=== PATIENT | male | born 1960 | race Caucasian/White ===

== ENCOUNTER 2018-03-05 18:26 | Emergency (ER) | payer BC, OTHER ==
[~2018-03-05] VITALS: Ht 182.9 cm; Wt 100.0 kg
[2018-03-05 18:39] VITALS: TEMP 37.4; Ht 182.9 cm; Wt 100.0 kg
[2018-03-05] MEDS ORDERED: LIDOCAINE/EPINEPHRINE 1% 20 ML VIAL INFIL STA (18:51)
[2018-03-05] MEDS ORDERED: OMEG10007 PO (19:04)
[2018-03-05] MEDS ORDERED: HYZ/10015 PO (19:04)
[2018-03-05] MEDS ORDERED: ASPI81TA28 PO (19:04)
--- NOTE | 2018-03-05 19:30 | DIAGNOSTIC IMAGING REPORT ---
L KNEE 3 VIEWS CLINICAL HISTORY: Left knee pain COMPARISON: None. DISCUSSION: No acute fractures are visualized. There is a vertical lucency involving the far medial aspect of the medial tibial plateau. As there is no joint effusion, and no history of acute trauma, this finding is likely chronic. There are osteoarthritic changes with medial joint compartment narrowing. IMPRESSION: 1. Osteoarthritic changes with medial joint compartment narrowing. Electronically signed by: Demian Dougherty M.D. 03/05/2018 7:28 PM Dictated Date/Time: 03/05/2018 7:26 PM
--- NOTE | 2018-03-05 20:20 | EMERGENCY ROOM VISIT NOTE ---
ED Visit Note First contact with patient: 18:42 Chief Complaint: "Bleeding from R leg" History of Present Illness: This patient is a 57-year-old male who presents to the Emergency Department via private vehicle accompanied by son for evaluation of their right posterior knee laceration. Patient sustained the laceration while ice skating at the local ice rink when he accidentally tripped over a small child and believes that there ice skates may have cut his leg. They report a minimal amount of bleeding initially. They deny any numbness or tingling into the distal extremity. . Patient rates his current discomfort as a 1/10. Patient's Tetanus status is believed to be currently up-to-date. Medications: As noted below Allergies: Lisinopril PMH: No pertinent SHx: Patient lives locally with family. ROS: All pertinent positive and negative review of systems are appropriately documented in the History of Present Illness. Physical Exam: VITAL SIGNS - Vital signs and nursing notes were reviewed. Stable. GENERAL -57-year-old male appearing his stated age who is in no acute distress. Communicates well with provider and answers questions appropriately. SKIN - There is a 4 cm long laceration noted posterior aspect of his right leg on the posterior lateral aspect of the knee. The edges gape apart with traction. No foreign bodies appreciated. Upon further examination there are no deep structures including vessel, tendon, or bony structures appreciated. There is no active bleeding noted. MUSCULOSKELETAL -full range of motion of the right knee assessed. He is neurovascularly intact distal to this laceration. NEUROLOGIC - Spinothalamic tract was found to be intact with ability to discriminate sharp versus dull sensation. No sensory defects of the dorsal column were appreciated utilizing light touch for evaluation. VASCULAR - Capillary refill was brisk. IMAGING: L KNEE 3 VIEWS CLINICAL HISTORY: Left knee pain COMPARISON: None. DISCUSSION: No acute fractures are visualized. There is a vertical lucency involving the far medial aspect of the medial tibial plateau. As there is no joint effusion, and no history of acute trauma, this finding is likely chronic. There are osteoarthritic changes with medial joint compartment narrowing. IMPRESSION: 1. Osteoarthritic changes with medial joint compartment narrowing. Electronically signed by: Demian Dougherty M.D. 03/05/2018 7:28 PM Dictated Date/Time: 03/05/2018 7:26 PM ED Course: Patient was seen and evaluated by myself. Risks and benefits of performing primary wound closure versus no repair were discussed with the patient who verbalizes understanding. X-ray was obtained to rule out bony injury. This is negative. Verbal consent was obtained prior to performing the procedure. 5 cc of 1% buffered lidocaine with epinephrine was used to anesthetize the posterior leg laceration. The wound was cleansed and prepped in the typical sterile fashion utilizing normal saline and Betadine. The wound was sterilely draped. Once proper anesthetization was established, the wound was further examined and demonstrated no deep involvement. The wound was copiously irrigated with normal saline and Betadine. The wound was closed using 3 simple 4-0 Vicryl sutures, and eight 4-0 nylon sutures with the wound edges being well approximated. Patient tolerated the procedure well. No complications were met. The wound was cleansed and dressed with a Bacitracin dressing. Patient received their Adacel vaccination. Patient educated on worrisome symptoms for return visit to the Emergency Department. Patient discharged to home in good condition. He is to follow up with PCP for chronic knee finding on Xray. In the evaluation and treatment of this patient, the following differential diagnoses were considered: Patellar Fracture, Tibial Plateau Fracture, Distal Femur Fracture, ACL Injury, PCL Injury, Collateral Ligament Injury, Pes Anserine Bursitis, Maisonneuve Fracture. Current/Historical Medications Scheduled Aspirin (Aspirin Ec), 81 MG PO DAILY Fish Oil ([place]-3), 1 CAP PO DAILY Hctz/Losartan (Hyzaar 25MG/100MG), Unknown Dose PO DAILY Allergies Coded Allergies: Lisinopril (Unverified Allergy, Unknown, ., 03/05/18) Vital Signs Date Time Temp Pulse Resp B/P (MAP) Pulse Ox O2 Delivery O2 Flow Rate FiO2 03/05/18 18:39 37.4 72 16 134/92 98 Departure Information Impression Primary Impression: Laceration Dispostion Home / Self-Care Condition GOOD Referrals Julian Carlos D.O. (PCP) Hossein Navarrete M.D. Patient Instructions My [facility] Additional Instructions Discharge Instructions: You have received 8 sutures on your leg (and 3 additional dissolvable). These sutures are NOT dissolvable and WILL need to be removed by a health care provider in 12-14 days. You can return to the Emergency Department or contact your Primary Care Provider to have the sutures removed. Proper wound care is essential for adequate wound healing and infection prevention. You can shower and clean the wound with soap and water. Do not scour over the wound, pat dry with a towel. Do not submerse the wound (i.e. bathe or dish wash) until the sutures have been removed. You can use an antibiotic ointment with a dressing over the wound for the next 3-4 days. After this time you may leave the wound dry and open to the air. If crust develops over the wound you can use a Q-tip to apply a 1:1 peroxide:water solution to clean the wound. Look for signs of infection of the wound including: increased pain, swelling, foul discharge, streaking, or increased temperature. If any of these are noticed you should return to the Emergency Department for further assessment and treatment. As with any laceration you may have received nerve damage to the surrounding tissues. This damage may or may not be permanent. You should keep the area covered with sunscreen for the first 6 months to 1 year when at risk for exposure to help minimize scarring. You can also use scar reducing creams or Vitamin E oil to help minimize scarring. For pain control, you can use the following [id number] medicines (if >12 yo): - Regular strength (325mg/tab) Tylenol (acetaminophen) 2 tabs every 4-6 hours as needed. Do not exceed 12 tablets in a 24 hour period. Avoid taking more than 3 grams (3000 mg) of Tylenol per day. This includes any other sources of acetaminophen you may take on a regular basis. - Regular strength (200 mg/tab) Advil (ibuprofen) 1-2 tabs every 4-6 hours as needed. Do not exceed a dose of 3200 mg per day. Return to the emergency department if your symptoms worsen despite treatment course outlined above. It would be reasonable to call Dr. Navarrete, your orthopedic surgeon in regard to the likely chronic finding of the knee if you have persistent symptoms. L KNEE 3 VIEWS CLINICAL HISTORY: Left knee pain COMPARISON: None. DISCUSSION: No acute fractures are visualized. There is a vertical lucency involving the far medial aspect of the medial tibial plateau. As there is no joint effusion, and no history of acute trauma, this finding is likely chronic. There are osteoarthritic changes with medial joint compartment narrowing.
[2018-03-05 20:34] VITALS: BP 148/100; PULSE 64; O2SAT 99
== END 2018-03-05 20:36 | disposition home or self-care (01) ==
LOC: C.EDB 18:26 → C.EDD 20:36
DX: S81.011A Laceration without foreign body, right knee, initial encounter (principal); W03.XXXA Other fall on same level due to collision with another person, initial encounter; Y93.21 Activity, ice skating; Y92.330 Ice skating rink (indoor) (outdoor) as the place of occurrence of the external cause; Z88.8 Allergy status to other drugs, medicaments and biological substances

== ENCOUNTER 2023-03-09 07:36 | Inpatient (IN) ==
[2023-03-09] MEDS ORDERED: cefTRIAXone SODIUM 2,000 MG/70 ML BAG IV STA (07:43)
--- NOTE | 2023-03-09 07:47 | Emergency Department Note ---
Impression & Plan Pneumonia, Hypoxia, Hypomagnesemia ED Provider Note NAME: JACQUELINE MANZO AGE: 62 SEX: M : 1960 ARRIVES VIA: Ambulance INFORMANT: Patient, EMS ED PROVIDER(S): Julian Whitfield DO CHIEF COMPLAINT: Difficulty breathing HPI: The patient is a 62-year-old male who presented to the emergency department for an evaluation of difficulty breathing. The patient states he had symptoms over the course of the last few weeks but he did notice a significant increase in his symptoms over the last few days. He has noticed a cough as well as fever. He denies having any dysuria or frequency. He denies having any swelling in his legs. The patient has not been seen by his primary care physician over the last few days. He denies having any hemoptysis. The patient states he has no chest pain. The patient called 911 this morning because he became very short of breath with very little exertion. The patient was treated with supplemental oxygen prior to arrival. He was noted to have oxygen saturation in the 70s. ROS: See above HPI for pertinent positives & negatives. A total of 10 systems reviewed and were otherwise negative. PAST MEDICAL HISTORY: See Below PAST SURGICAL HISTORY: See Below FAMILY HISTORY: See Below SOCIAL HISTORY: See Below HOME MEDICATIONS: See Below ALLERGIES: See Below VITALS: See Below PHYSICAL EXAMINATION: GENERAL: The patient is awake and alert. He appears to be uncomfortable. EYES: The conjunctivae are clear. The pupils are round and reactive. EARS, NOSE, MOUTH AND THROAT: The nose is without any evidence of any deformity. NECK: The neck is nontender and supple. RESPIRATORY: Diminished breath sounds were noted with rales at both bases. Absent breath sounds were noted in the right middle lobe. There is significant tachypnea as well as conversational dyspnea. CARDIOVASCULAR: Tachycardic and regular heart sounds were noted to auscultation. There is no definite murmur. GASTROINTESTINAL: The abdomen is soft. Abdomen is nontender. MUSCULOSKELETAL/EXTREMITIES: There is no evidence of gross deformity full range of motion is noted in the hips and shoulders. SKIN: There is no obvious evidence of any rash. There are no petechiae, pallor or cyanosis noted. NEUROLOGIC: Patient is awake alert and oriented x3 MEDICAL DECISION MAKING: The patient is a 62-year-old male who presented to the emergency department for an evaluation of shortness of breath and cough. The patient was found to have a fever. Physical exam appears to be consistent with pneumonia. The patient had hypoxia which was treated with high flow oxygen. The patient was feeling much better on subsequent reevaluation. I discussed the patient's laboratory and radiographic studies with him. Given his findings I discussed his condition with the on-call [facility]. They have agreed to evaluate the patient in the emergency department for further management and disposition. The patient was treated with IV antibiotics and IV fluids. Triage Nursing notes reviewed. Prior medical records reviewed Vital Signs: reviewed and remarkable for tachycardia and fever. Differential diagnosis: Reactive airway disease, pneumonia, pneumothorax, COPD, CHF, infections, cardiac ischemia, pulmonary embolism, musculoskeletal, gastrointestinal, as well as other pathologies. ER treatment provided: See below Diagnostics interpreted by me: ECG: EKG was obtained in the emergency department. My interpretation is sinus tachycardia at 118 bpm. There is no ectopy. Nonspecific T wave abnormalities were noted in the inferior leads. No previous tracing was available. Cardiac Monitoring: An order was placed for continuous cardiac monitoring. The monitor shows a rate of 100 bpm with sinus tachycardia. Laboratory studies: As stated above and show below. Imaging studies: See below. Radiographic imaging was reviewed by myself Consultation(s): I discussed this case with Elsa who is covering for the [facility] group. They will evaluate the patient in the emergency department. ED COURSE: Procedures: none Critical Care: I have personally spent greater than 35 minutes of critical care time in the direct management of this patient. This includes bedside care, interpretation of diagnostic studies, and testing, discussion with consultants, patient, and family members, and other required patient management activities. This 35 minutes is in excess of all separately billable procedures. Past Med/Surg History Medical History (Updated 03/09/23 @ 10:29 by Lorena Jasmine PA-C) Hypertension Sensorineural hearing loss of both ears Tinnitus, bilateral Surgical History (Updated 03/09/23 @ 10:26 by Lorena Jasmine PA-C) No significant past surgical history Family History (Updated 03/09/23 @ 10:26 by Lorena Jasmine PA-C) Father COPD (chronic obstructive pulmonary disease) Mother Dementia Social History Smoking Status: Never smoker Preferred Language: Malawian Feels Safe at Home: Yes Allergies Allergies Allergy/AdvReac Type Severity Reaction Status Date / Time lisinopril AdvReac Mild Cough Unverified 03/09/23 09:26 Home Meds Home Medications Medication Instructions Recorded Confirmed albuterol sulfate 90 mcg/actuation 1 puff inhalation Q4H PRN 03/09/23 03/09/23 aerosol inhaler Shortness Of Breath losartan 100 1 tab PO DAILY 03/09/23 03/09/23 mg-hydrochlorothiazide 12.5 mg tablet Results & Data (ED) Vital Signs Vital Signs - 24 hr 03/09/23 07:49 03/09/23 07:50 03/09/23 08:08 Temperature 38.4 C H Temperature Source Oral Pulse Rate 117 H Pulse Rate [Right Finger] 113 H Pulse Rhythm Regular Pulse Rhythm [Right Finger] Pulse Strength Normal Respiratory Rate 22 20 Respiratory Effort / Characteristics Spontaneous Non-Labored Spontaneous Respiratory Depth Normal Blood Pressure 156/91 H Blood Pressure [Left Arm] Blood Pressure Mean 112 Blood Pressure Mean [Left Arm] Blood Pressure Position Sitting Pulse Oximetry 78 L 93 Oxygen Delivery Method Room Air High Flow Nasal Cannula High Flow Nasal Cannula Oxygen Flow Rate 30 Fraction of Inspired Oxygen 100 Sepsis Recent Fever Within 48 Hours Yes Sepsis New/Unexplained Change in Mental Status No Sepsis Action Taken by Nursing Physician Notified 03/09/23 08:09 03/09/23 08:10 03/09/23 08:22 Temperature Temperature Source Pulse Rate Pulse Rate [Right Finger] 109 H 111 H Pulse Rhythm Pulse Rhythm [Right Finger] Regular Regular Pulse Strength Respiratory Rate 22 20 Respiratory Effort / Characteristics Respiratory Depth Blood Pressure Blood Pressure [Left Arm] 156/91 H Blood Pressure Mean Blood Pressure Mean [Left Arm] 112 Blood Pressure Position Pulse Oximetry 95 95 95 Oxygen Delivery Method High Flow Nasal Cannula High Flow Nasal Cannula High Flow Nasal Cannula Oxygen Flow Rate Fraction of Inspired Oxygen Sepsis Recent Fever Within 48 Hours Sepsis New/Unexplained Change in Mental Status Sepsis Action Taken by Nursing 03/09/23 08:55 03/09/23 09:19 03/09/23 09:58 Temperature Temperature Source Pulse Rate Pulse Rate [Right Finger] 100 H 97 H 100 H Pulse Rhythm Pulse Rhythm [Right Finger] Pulse Strength Respiratory Rate 16 17 20 Respiratory Effort / Characteristics Non-Labored Spontaneous Respiratory Depth Blood Pressure Blood Pressure [Left Arm] 156/91 H 110/66 Blood Pressure Mean Blood Pressure Mean [Left Arm] 112 80 Blood Pressure Position Pulse Oximetry 94 95 93 Oxygen Delivery Method High Flow Nasal Cannula High Flow Nasal Cannula High Flow Nasal Cannula Oxygen Flow Rate 30 25 Fraction of Inspired Oxygen 85 Sepsis Recent Fever Within 48 Hours Sepsis New/Unexplained Change in Mental Status Sepsis Action Taken by Custodial Medications Current Medication List: was personally reviewed by me Laboratory Data Attestation: I reviewed the patient's lab results. 03/09/23 07:38 03/09/23 07:38 Lab Results 03/09/23 03/09/23 03/09/23 Range/Units 07:38 07:38 07:38 WBC 19.47 H (4.8-10.8) K/ul RBC 3.97 L (4.70-6.10) M/uL Hgb 12.5 L (14.0-18.0) g/dl Hct 36.8 L (42.0-52.0) % MCV 92.7 (80.0-100.0) fL MCH 31.5 (25.0-34.0) pg MCHC 34.0 (32.0-36.0) g/dL RDW Std Deviation 46.3 (36.4-46.3) fL RDW Coeff of Rajesh 13.4 (11.5-14.5) % Plt Count 341 (130-400) K/uL MPV 10.0 (9.4-12.4) fL Immature Gran % (Auto) 0.8 % Neut % (Auto) 93.5 % Lymph % (Auto) 2.9 % Day % (Auto) 2.1 % Eos % (Auto) 0.3 % Baso % (Auto) 0.4 % Neut # (Auto) 18.21 H (1.40-6.50) K/uL Lymph # (Auto) 0.56 L (1.2-3.4) K/uL Day # (Auto) 0.41 (0.11-0.59) K/uL Eos # (Auto) 0.06 (0-0.50) K/uL Baso # (Auto) 0.07 (0-0.2) K/uL Immature Gran # (Auto) 0.16 (0.01-0.20) K/uL PT 11.6 (9.0-12.0) Seconds INR 1.1 (0.9-1.1) APTT 23.9 (21.0-31.0) Seconds PTT Ratio 0.9 VBG pH (7.36-7.41) VBG pCO2 (38-50) mmHg VBG pO2 mmHg VBG HCO3 mmol/L VBG O2 Saturation % VBG Base Excess mEq/L Sodium 137 (136-145) mmol/L Potassium 4.0 (3.5-5.1) mmol/L Chloride 107 (98-107) mmol/L Carbon Dioxide 22 (21-32) mmol/L Anion Gap 8 (3-11) BUN 24 H (6-23) mg/dl Creatinine 1.35 (0.6-1.4) mg/dl Est Cr Clr Drug Dosing 69.8 ml/min Est GFR ( Amer) 65.2 ml/min Est GFR (Non-Af Amer) 56.3 ml/min BUN/Creatinine Ratio 17.8 (10-20) Glucose 124 H (70-99(Fasting)) mg/dl Lactate (0.4-2.0) mmol/L Calcium 9.3 (8.6-10.3) mg/dl Magnesium 1.5 L (1.7-2.4) mg/dl Total Bilirubin 1.1 H (0.2-1.0) mg/dl Direct Bilirubin 0.2 (0-0.2) mg/dl AST 18 (13-39) U/L ALT 13 (7-52) U/L Alkaline Phosphatase 56 (34-104) U/L Troponin I High Sens 16.5 (0-20) pg/ml B-Natriuretic Peptide (0-100) pg/ml Total Protein 7.4 (6.0-8.3) gm/dl Albumin 3.3 L (3.4-5.0) gm/dl Procalcitonin (0-0.5) ng/ml SARS-CoV-2 (PCR) (Negative) Influenza Type A (PCR) (Neg) Influenza Type B (PCR) (Neg) RSV (RT-PCR) (Neg) 03/09/23 03/09/23 03/09/23 Range/Units 07:38 07:38 07:38 WBC (4.8-10.8) K/ul RBC (4.70-6.10) M/uL Hgb (14.0-18.0) g/dl Hct (42.0-52.0) % MCV (80.0-100.0) fL MCH (25.0-34.0) pg MCHC (32.0-36.0) g/dL RDW Std Deviation (36.4-46.3) fL RDW Coeff of Rajesh (11.5-14.5) % Plt Count (130-400) K/uL MPV (9.4-12.4) fL Immature Gran % (Auto) % Neut % (Auto) % Lymph % (Auto) % Day % (Auto) % Eos % (Auto) % Baso % (Auto) % Neut # (Auto) (1.40-6.50) K/uL Lymph # (Auto) (1.2-3.4) K/uL Day # (Auto) (0.11-0.59) K/uL Eos # (Auto) (0-0.50) K/uL Baso # (Auto) (0-0.2) K/uL Immature Gran # (Auto) (0.01-0.20) K/uL PT (9.0-12.0) Seconds INR (0.9-1.1) APTT (21.0-31.0) Seconds PTT Ratio VBG pH 7.46 H (7.36-7.41) VBG pCO2 31 L (38-50) mmHg VBG pO2 57 mmHg VBG HCO3 22 mmol/L VBG O2 Saturation 89.5 % VBG Base Excess -0.9 mEq/L Sodium (136-145) mmol/L Potassium (3.5-5.1) mmol/L Chloride (98-107) mmol/L Carbon Dioxide (21-32) mmol/L Anion Gap (3-11) BUN (6-23) mg/dl Creatinine (0.6-1.4) mg/dl Est Cr Clr Drug Dosing ml/min Est GFR ( Amer) ml/min Est GFR (Non-Af Amer) ml/min BUN/Creatinine Ratio (10-20) Glucose (70-99(Fasting)) mg/dl Lactate 1.5 (0.4-2.0) mmol/L Calcium (8.6-10.3) mg/dl Magnesium (1.7-2.4) mg/dl Total Bilirubin (0.2-1.0) mg/dl Direct Bilirubin (0-0.2) mg/dl AST (13-39) U/L ALT (7-52) U/L Alkaline Phosphatase (34-104) U/L Troponin I High Sens (0-20) pg/ml B-Natriuretic Peptide (0-100) pg/ml Total Protein (6.0-8.3) gm/dl Albumin (3.4-5.0) gm/dl Procalcitonin 2.91 H (0-0.5) ng/ml SARS-CoV-2 (PCR) (Negative) Influenza Type A (PCR) (Neg) Influenza Type B (PCR) (Neg) RSV (RT-PCR) (Neg) 03/09/23 03/09/23 Range/Units 07:38 Unknown WBC (4.8-10.8) K/ul RBC (4.70-6.10) M/uL Hgb (14.0-18.0) g/dl Hct (42.0-52.0) % MCV (80.0-100.0) fL MCH (25.0-34.0) pg MCHC (32.0-36.0) g/dL RDW Std Deviation (36.4-46.3) fL RDW Coeff of Rajesh (11.5-14.5) % Plt Count (130-400) K/uL MPV (9.4-12.4) fL Immature Gran % (Auto) % Neut % (Auto) % Lymph % (Auto) % Day % (Auto) % Eos % (Auto) % Baso % (Auto) % Neut # (Auto) (1.40-6.50) K/uL Lymph # (Auto) (1.2-3.4) K/uL Day # (Auto) (0.11-0.59) K/uL Eos # (Auto) (0-0.50) K/uL Baso # (Auto) (0-0.2) K/uL Immature Gran # (Auto) (0.01-0.20) K/uL PT (9.0-12.0) Seconds INR (0.9-1.1) APTT (21.0-31.0) Seconds PTT Ratio VBG pH (7.36-7.41) VBG pCO2 (38-50) mmHg VBG pO2 mmHg VBG HCO3 mmol/L VBG O2 Saturation % VBG Base Excess mEq/L Sodium (136-145) mmol/L Potassium (3.5-5.1) mmol/L Chloride (98-107) mmol/L Carbon Dioxide (21-32) mmol/L Anion Gap (3-11) BUN (6-23) mg/dl Creatinine (0.6-1.4) mg/dl Est Cr Clr Drug Dosing ml/min Est GFR ( Amer) ml/min Est GFR (Non-Af Amer) ml/min BUN/Creatinine Ratio (10-20) Glucose (70-99(Fasting)) mg/dl Lactate (0.4-2.0) mmol/L Calcium (8.6-10.3) mg/dl Magnesium (1.7-2.4) mg/dl Total Bilirubin (0.2-1.0) mg/dl Direct Bilirubin (0-0.2) mg/dl AST (13-39) U/L ALT (7-52) U/L Alkaline Phosphatase (34-104) U/L Troponin I High Sens (0-20) pg/ml B-Natriuretic Peptide 97 (0-100) pg/ml Total Protein (6.0-8.3) gm/dl Albumin (3.4-5.0) gm/dl Procalcitonin (0-0.5) ng/ml SARS-CoV-2 (PCR) NEGATIVE (Negative) Influenza Type A (PCR) Negative (Neg) Influenza Type B (PCR) Negative (Neg) RSV (RT-PCR) Negative (Neg) Administered Medications Azithromycin 500 mg/ Dextrose 255 mls @ 127.5 mls/hr IV NOW STA Stop: 03/09/23 10:36 Last Admin: 03/09/23 08:54 Dose: 127.5 mls/hr Documented By: ALEX Discontinued Medications Acetaminophen (Acetaminophen 500 Mg Tab) 1,000 mg PO NOW STA Stop: 03/09/23 08:09 Last Admin: 03/09/23 08:16 Dose: 1,000 mg Documented By: ALEX Ceftriaxone Sodium (Rocephin) 2,000 mg in 70 mls @ 140 mls/hr IV NOW STA Stop: 03/09/23 08:12 Last Infusion: 03/09/23 08:54 Dose: 0 mls/hr Documented By: Admin: 03/09/23 08:16 Dose: 140 mls/hr Documented By: KV Magnesium Sulfate/Dextrose (Magnesium Sulfate / D5w) 1 gm in 100 mls @ 100 mls/hr IV NOW STA Stop: 03/09/23 09:42 Last Infusion: 03/09/23 09:43 Dose: 0 mls/hr Documented By: Admin: 03/09/23 08:55 Dose: 100 mls/hr Documented By: KV Sodium Chloride (Nss 1000ml) 1,000 mls @ 999 mls/hr IV .Q1H1M ONE Stop: 03/09/23 09:44 Last Admin: 03/09/23 08:55 Dose: 999 mls/hr Documented By: KV Imaging Data Radiologist's Impression: Chest X-Ray 03/09/23 07:38 XR chest 1V portable HISTORY: 62 years-old Male Sepsis acute sepsis with shortness of breath COMPARISON: Chest CT 03/20/2013 TECHNIQUE: AP view of the chest FINDINGS: Cardiac silhouette is normal in size. No pneumothorax. Interstitial coarsening of the lungs with multifocal airspace opacities noted predominantly throughout the left lung. Bones appear grossly intact. IMPRESSION: Left greater than right pulmonary opacities suggestive of multifocal pneumonia. ACT 112: Negative or not required by law. The above report was generated using voice recognition software. It may contain grammatical, syntax or spelling errors. Electronically signed by: Phillip Clements M.D. 03/09/2023 8:14 AM Discharge Plan Visit Data Chief Complaint: Shortness of Breath/Dyspnea Stated Complaint: FEVER, SOB ED Provider: Julian Whitfield Discharge Problem: Pneumonia, Hypoxia, Hypomagnesemia Patient Disposition: Being Evaluated by Hospitalist Forms Stand Alone Forms: My [employer] Prescriptions Prescriptions: No Action albuterol sulfate 90 mcg/actuation HFA aerosol inhaler 1 puff INHALATION Q4H PRN (Reason: Shortness Of Breath) losartan-hydrochlorothiazide 100-12.5 mg tablet 1 tab PO DAILY Referrals Referrals: Julian Carlos DO [Primary Care Provider] -
[2023-03-09] MEDS ORDERED: ACETAMINOPHEN 500 MG TAB PO STA (08:08)
--- NOTE | 2023-03-09 08:16 | XRay Report ---
XR chest 1V portable HISTORY: 62 years-old Male Sepsis acute sepsis with shortness of breath COMPARISON: Chest CT 03/20/2013 TECHNIQUE: AP view of the chest FINDINGS: Cardiac silhouette is normal in size. No pneumothorax. Interstitial coarsening of the lungs with mult ifocal airspace opacities noted predominantly throughout the left lung. Bones appear grossly intact. IMPRESSION: Left greater than right pulmonary opacities suggestive of multifocal pneumonia. ACT 112: Negative or not required by law. The above report was generated using voice recognition software. It may contain grammatical, syntax o r spelling errors. Electronically signed by: Phillip Clements M.D. 03/09/2023 8:14 AM
[2023-03-09 08:19] LABS: Hematocrit (blood only) 36.8 % (42.0-52.0); Hemoglobin 12.5 g/dl (14.0-18.0); Mean Corpuscular Hemoglobin 31.5 pg (25.0-34.0); Mean Corpuscular Volume 92.7 fL (80.0-100.0); Platelet Count 341 K/uL (130-400); RDW Coefficient of Variation 13.4 % (11.5-14.5); RDW Standard Deviation 46.3 fL (36.4-46.3); Red Blood Count 3.97 M/uL (4.70-6.10); White Blood Count 19.47 K/ul (4.8-10.8)
[2023-03-09 08:26] LABS: Base Excess VBG -0.9 mEq/L; HCO3 VBG 22 mmol/L; Oxygen Saturation VBG 89.5 %; PCO2 VBG 31 mmHg (38-50); PO2 VBG 57 mmHg; pH VBG 7.46 (7.36-7.41)
[2023-03-09 08:30] LABS: Albumin Level 3.3 gm/dl (3.4-5.0); Bilirubin Direct 0.2 mg/dl (0-0.2); Bilirubin,Total 1.1 mg/dl (0.2-1.0); Calcium 9.3 mg/dl (8.6-10.3); Magnesium 1.5 mg/dl (1.7-2.4)
[2023-03-09 08:36] LABS: BUN Creatinine Ratio 17.8 (10-20); Creatinine Clr Calc Pharmacy 69.8 ml/min; Est GFR (African American) 65.2 ml/min; Est GFR (Non-African American) 56.3 ml/min; Total Protein 7.4 gm/dl (6.0-8.3)
[2023-03-09 08:37] LABS: INR 1.1 (0.9-1.1); Partial Thromboplastin Ratio 0.9; Partial Thromboplastin Time 23.9 Seconds (21.0-31.0); Prothrombin Time 11.6 Seconds (9.0-12.0)
[2023-03-09] MEDS ORDERED: AZITHROMYCIN 500 MG in DEXTROSE 5% 250 ML IV STA (08:37)
[2023-03-09 08:40] LABS: Troponin I High Sensitivity 16.5 pg/ml (0-20)
[2023-03-09] MEDS ORDERED: MAGNESIUM SULFATE / D5W 1 GM/100 ML BAG IV STA (08:43)
[2023-03-09] MEDS ORDERED: SODIUM CHLORIDE 0.9% 1000ML 1,000 ML IV ONE ×2 (08:44→10:31)
[2023-03-09 08:45] LABS: Basophils # (auto) 0.07 K/uL (0-0.2); Basophils % (auto) 0.4 %; Eosinophils # (auto) 0.06 K/uL (0-0.50); Eosinophils % (auto) 0.3 %; Immature Granulocytes # (auto) 0.16 K/uL (0.01-0.20); Immature Granulocytes % (auto) 0.8 %; Lymphocytes # (auto) 0.56 K/uL (1.2-3.4); Lymphocytes % (auto) 2.9 %; Monocytes # (auto) 0.41 K/uL (0.11-0.59); Monocytes % (auto) 2.1 %; Neutrophils # (auto) 18.21 K/uL (1.40-6.50); Neutrophils % (auto) 93.5 %
[2023-03-09 09:51] LABS: Influenza A virus by PCR Negative (Neg); Influenza B virus by PCR Negative (Neg); RSV by PCR Negative (Neg); SARS CoV2 RNA(COVID-19) Ceph NEGATIVE (Negative)
[2023-03-09] MEDS ORDERED: MAGNESIUM SULFATE / D5W 1 GM/100 ML BAG IV ONE (10:06)
--- NOTE | 2023-03-09 10:17 | History & Physical Report ---
Date of Service March 09, 2023 Assessment & Plan (1) Acute respiratory failure with hypoxia: Plan: ARF w/ hypoxia secondary to multifocal bacterial pneumonia Acute/unstable - Admit to PCU - OOB to chair - Continuous pulse ox and supplemental O2 to maintain sat >92% - STAT d-dimer obtained, markedly elevated at 1900, will obtain CTA to r/o PE - Blood cultures x 2 sets collected, pending - Duonebs QIDR and q2 prn - Mucinex 1200mg BID - Sputum culture and gram stain - Empiric Rocephin 2g IV daily and Zithromax 500mg IV daily - APAP prn headache/pain/fever (2) Sepsis: Plan: Sepsis secondary to bacterial pneumonia - criteria met by leukocytosis, fever, tachycardia Acute/unstable - Reviewed CBC with diff - wbc count of 19.47 - Blood cultures ordered as above - Treatment implemented with Rocephin and Zithromax - Thus far, received 2L of NSS in ED, will add additional 1L wide open for total of 30 cc/kg - Repeat cbc w/ diff in AM (3) Hypomagnesemia: Plan: Acute/unstable - Reviewed Mag level, 1.5 - Treated with 1g of Mag Sulfate by ED physician - Ordered additional 1g and repeat level in AM (4) Hypertension: Plan: Chronic/stable - Takes Losartan/HCTZ 100-12.5mg at HS - Resume as prescribed Plan DVT ppx will be provided with Lovenox. Above plan of care has been d/w Dr. Salmeron, further orders will be implemented as warranted. History of Present Illness Chief Complaint: shortness of breath Primary Care Provider: Julian Carlos DO Dilan Casiano is a 62 yo WM with a pmhx of HTN who presents to the ER today c/o dyspnea that has been progressively worsening since the end of January. He reports that he had a similar event in September, was put on a course of antibiotics and symptoms seemed to resolve. He denies any underlying lung disease, immunosuppressive conditions, h/o cancer, or tobacco use. 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 He noticed over the past 24 hours that he has has been feeling poorly, has had a fever and worsening shortness of breath, particularly with exertion. He did admit to flying to [place] recently but was feeling poorly prior to his trip. No h/o clotting disorders either personally or in his family. He contacted urgent care clinic this morning to arrange to be seen and was asked what his pulse oximetry was. He was able to measure this using his smart watch and noted that it was 79%. He told the person he was speaking to this and she told him to call an ambulance to be taken for prompt evaluation. In the ER, he was febrile with a temp of 38.4C, tachycardic, and significantly hypoxic. Hiswork up demonstrated a wbc count of 19,470 with left shift and cxr was consistent with multifocal pneumonia. His procal is elevated at nearly 3. Normal lactate of 1.5. He was medicated with a dose of Rocephin and Zithromax and placed on high flow nasal cannula at 25L with an FiO2 of 85%. He is currently comfortable, denies cp or dyspnea. He denies ill contacts and is negative for COVID, flu, and RSV. He was vaccinated and boosted for COVID-19 and influenza. He has been referred to the hospitalist service for admission for ongoing treatment. Allergies Allergy/AdvReac Type Severity Reaction Status Date / Time lisinopril AdvReac Mild Cough Unverified 03/09/23 09:26 Home Medications Medication Instructions Recorded Confirmed Type albuterol sulfate 90 mcg/actuation 1 puff inhalation Q4H PRN 03/09/23 03/09/23 History aerosol inhaler Shortness Of Breath losartan 100 1 tab PO DAILY 03/09/23 03/09/23 History mg-hydrochlorothiazide 12.5 mg tablet Past Med/Surg History Medical History (Updated 03/09/23 @ 10:29 by Lorena Jasmine PA-C) Hypertension Sensorineural hearing loss of both ears Tinnitus, bilateral Surgical History (Updated 03/09/23 @ 10:26 by Lorena Jasmine PA-C) No significant past surgical history Family History (Updated 03/09/23 @ 10:26 by Lorena Jasmine PA-C) Father COPD (chronic obstructive pulmonary disease) Mother Dementia Social History Smoking Status: Never smoker Preferred Language: Portuguese Feels Safe at Home: Yes Physical Exam Physical Exam: GENERAL: 62 yo Well-developed, well-nourished WM. A&Ox4. NAD. LUNGS: Nonlabored. Bibasilar coarse crackles. No wheezes or rhonchi. CARDIOVASCULAR: Regular rate and rhythm. No M/G/R. No JVD. ABDOMEN: Soft, non-tender and non-distended. BS normoactive x 4 quad. SKIN: Warm, dry, intact. No rashes or lesions. Results & Data Results & Data Vital Signs (Past 12 Hours) Vital Signs Temp Pulse Pulse Resp BP BP Pulse Ox 03/09/23 09:58 100 H 20 93 03/09/23 09:19 97 H 17 110/66 95 03/09/23 08:55 100 H 16 156/91 H 94 03/09/23 08:22 111 H 20 95 03/09/23 08:10 95 03/09/23 08:09 109 H 22 156/91 H 95 03/09/23 08:08 03/09/23 07:50 113 H 20 93 03/09/23 07:49 38.4 C H 117 H 22 156/91 H 78 L O2 Del Method O2 Flow Rate FiO2 03/09/23 09:58 High Flow Nasal Cannula 25 85 03/09/23 09:19 High Flow Nasal Cannula 03/09/23 08:55 High Flow Nasal Cannula 30 03/09/23 08:22 High Flow Nasal Cannula 03/09/23 08:10 High Flow Nasal Cannula 03/09/23 08:09 High Flow Nasal Cannula 03/09/23 08:08 High Flow Nasal Cannula 03/09/23 07:50 High Flow Nasal Cannula 30 100 03/09/23 07:49 Room Air Laboratory Results 03/09/23 07:38 03/09/23 07:38 Diagnostic Findings Chest X-Ray 03/09/23 07:38 XR chest 1V portable HISTORY: 62 years-old Male Sepsis acute sepsis with shortness of breath COMPARISON: Chest CT 03/20/2013 TECHNIQUE: AP view of the chest FINDINGS: Cardiac silhouette is normal in size. No pneumothorax. Interstitial coarsening of the lungs with multifocal airspace opacities noted predominantly throughout the left lung. Bones appear grossly intact. IMPRESSION: Left greater than right pulmonary opacities suggestive of multifocal pneumonia. ACT 112: Negative or not required by law. The above report was generated using voice recognition software. It may contain grammatical, syntax or spelling errors. Electronically signed by: Phillip Clements M.D. 03/09/2023 8:14 AM Supervising Physician Co-Signing Physician Notes Patient seen and examined, chart reviewed, case discussed with Mary Jasmine PA-C and I agree with the assessment and plan as above except as otherwise noted Labs and images reviewed Everette is seen at the bedside. He reports he has had several weeks of progressive shortness of breath gradually impairing his ability to do exercise, which was acutely worse this morning. He has not had chest pain, chest pressure. He has had a dry cough with minimal sputum production. He has had intermittent feelings of feverishness and night sweats, but these have not been consistent. He notes that he has had a diminished ability to cycle outside, and has gradually been more short of breath and his fitness watch has shown a decreasing VO2 max. He recently traveled to [place], reports that he was star ting to feel poor prior to this trip. Before the onset of his symptoms he notes he was gardening and thinks that he inhaled some soil material. No leg swelling/calf asymmetry/calf pain. At bedside assessment lungs are with diminished sounds in the bases, grossly clear superiorly. Heart rate is reg ular, mildly tachycardic at bedside visit. Skin is warm and well-perfused. Clinically patient is requiring high flow nasal cannula and is febrile to 38.4 with an x-ray suspicious for multifocal pneumonia. CTA did not show PE, was consistent with multifocal pneumonia. Agree with continuing antibiotics as noted above. PG Care Time/CCT Total # of Minutes Spent Total Time Spent with Patient: Total time spent is greater than 50% in coordination of care (as documented) at patient's floor/unit and/or counseling patient: Coding Level of Care Code 77621 INT INP/OBS CARE 3/75MIN Diagnoses Acute respiratory failure with hypoxia J96.01 Sepsis A41.9 Hypomagnesemia E83.42 Hypertension I10
[2023-03-09] MEDS ORDERED: SODIUM CHLORIDE 0.9% 1000ML 500 ML IV ONE (10:31)
[2023-03-09] MEDS ORDERED: SODIUM CHLORIDE 0.9% 1000ML 1,000 ML IV SCH (10:32)
[2023-03-09 10:42] LABS: D Dimer 1900 ug/L FEU (0-500)
[2023-03-09] MEDS ORDERED: POLYETHYLENE (MIRALAX) 17 GM PACK PO PRN (11:37)
[2023-03-09] MEDS ORDERED: ALUMINUM/MAGNESIUM SUSP 30 ML UDC PO PRN (11:37)
[2023-03-09] MEDS ORDERED: ACETAMINOPHEN 325 MG TAB PO PRN (11:37)
[2023-03-09] MEDS ORDERED: ONDANSETRON INJ 2 MG/ML 2 ML VIAL IV PRN (11:37)
[2023-03-09] MEDS ORDERED: MAGNESIUM HYDROXIDE SUSP 30 ML UDC PO PRN (11:37)
[2023-03-09] MEDS: ALBUT/IPRATROP 3MG/0.5MG NEB 3 ML VIAL NEB SCH ×3 (12:31→19:33)
[2023-03-09 12:41] LABS: Appearance Urine Clear (Clear); Bacteria Urine Automated Negative (Negative); Bilirubin Urine Negative (Negative); Blood Urine Negative (Negative); Color Urine Dark Yellow; Glucose Urine UA Negative (Negative); Ketones Urine Trace (Negative); Leukocyte Esterase Urine Negative (Negative); Nitrite Urine Negative (Negative); Protein Urine Trace (Negative); RBC Urine Automated 0-4 /hpf (0-4); Specific Gravity Urine 1.019 (1.000-1.030); Urobilinogen Urine Negative (Negative)
[2023-03-09] MEDS ORDERED: OPTIRAY 320 500ml IV ONE (13:22)
--- NOTE | 2023-03-09 13:35 | CT Scan Report ---
CT ANGIOGRAM OF THE CHEST CLINICAL HISTORY: Dyspnea. COMPARISON STUDY: Chest x-ray dated 03/09/2023. Chest CT dated 03/20/2013. TECHNIQUE: Following the IV administration of 117 cc of Optiray 320, CT angiogram of the chest was pe rformed from the upper abdomen to the thoracic inlet utilizing the pulmonary embolus protocol. Images are reviewed in the axial, sagittal, and coronal planes. 3-D MIPS images are created and assessed. I V contrast was administered without complication. A dose lowering technique was utilized adhering to the principles of ALARA. CT DOSE: 470.84 mGy.cm FINDINGS: Thyroid: Imaged portions of the thyroid gland are normal in size and attenuation. Thoracic aorta: The thoracic aorta is normal in caliber and demonstrates standard 3-vessel arch anato my. No dissection is seen. Pulmonary vasculature: The pulmonary trunk is normal in caliber. There are no filling defects identif ied in main, lobar, or segmental pulmonary branches to suggest pulmonary embolus. Heart: The heart is normal in size and without pericardial effusion. Lungs and pleural spaces: There is multifocal airspace consolidation throughout both lungs, left grea ter than right. This is most confluent in the lower lobes. The trachea and central airways are clear. There is no significant pleural effusion. Mediastinum: There are enlarged mediastinal lymph nodes. Prevascular nodes measure up to 1.7 cm in sh ort axis. Paratracheal nodes measure up to 11 mm in short axis. Trisha: Enlarged bilateral hilar nodes measure up to 18 mm in short axis. Axillae: There is no axillary lymphadenopathy. Upper abdomen: There is a small hiatal hernia. Scattered hepatic cysts measure up to 2 cm. Skeletal structures: No lytic or blastic bony lesions are seen. IMPRESSION: 1. There is no evidence of pulmonary embolus in the main, lobar, or segmental pulmonary arteries. 2. Multifocal airspace consolidation as above, typical for pneumonia. Clinical correlation will be re quired and radiographic follow-up to resolution is recommended. 3. Mildly enlarged mediastinal and hilar lymph nodes are likely reactive. 4. Additional findings as above. ACT 112: Negative or not required by law. Electronically signed by: Ez Lowery M.D. 03/09/2023 1:33 PM
[2023-03-09] MEDS: hydroCHLOROthiazide 25 MG TAB PO SCH (20:25)
[2023-03-09] MEDS: LOSARTAN POTASSIUM 50 MG TAB PO SCH (20:25)
[2023-03-09] MEDS: guaiFENesin 600 MG TABCR PO SCH (20:25)
[2023-03-10 06:56] LABS: Basophils # (auto) 0.05 K/uL (0-0.2); Basophils % (auto) 0.4 %; Eosinophils # (auto) 0.28 K/uL (0-0.50); Hematocrit (blood only) 31.6 % (42.0-52.0); Hemoglobin 10.4 g/dl (14.0-18.0); Immature Granulocytes # (auto) 0.08 K/uL (0.01-0.20); Immature Granulocytes % (auto) 0.6 %; Lymphocytes # (auto) 1.57 K/uL (1.2-3.4); Lymphocytes % (auto) 11.3 %; Mean Corpuscular Hemoglobin 30.8 pg (25.0-34.0); Mean Corpuscular Hgb Conc 32.9 g/dL (32.0-36.0); Mean Corpuscular Volume 93.5 fL (80.0-100.0); Mean Platelet Volume 9.5 fL (9.4-12.4); Monocytes # (auto) 0.51 K/uL (0.11-0.59); Monocytes % (auto) 3.7 %; Neutrophils # (auto) 11.45 K/uL (1.40-6.50); Platelet Count 315 K/uL (130-400); RDW Coefficient of Variation 13.5 % (11.5-14.5); RDW Standard Deviation 46.7 fL (36.4-46.3); Red Blood Count 3.38 M/uL (4.70-6.10); White Blood Count 13.94 K/ul (4.8-10.8)
[2023-03-10 07:13] LABS: BUN Creatinine Ratio 16.8 (10-20); Creatinine Clr Calc Pharmacy 79.5 ml/min; Est GFR (Non-African American) 65.5 ml/min; Magnesium 1.8 mg/dl (1.7-2.4); Potassium 4.4 mmol/L (3.5-5.1)
[2023-03-10] MEDS: ALBUT/IPRATROP 3MG/0.5MG NEB 3 ML VIAL NEB SCH ×4 (07:23→20:06)
[2023-03-10] MEDS: cefTRIAXone SODIUM 2,000 MG in DEXTROSE 5% 50 ML IV SCH (08:21)
[2023-03-10] MEDS: guaiFENesin 600 MG TABCR PO SCH ×2 (08:22→20:31)
[2023-03-10] MEDS: ENOXAPARIN INJ 40 MG/0.4 ML SYR SQ SCH (08:22)
[2023-03-10] MEDS ORDERED: AZITHROMYCIN 500 MG in DEXTROSE 5% 250 ML IV SCH (09:00)
--- NOTE | 2023-03-10 14:55 | Hospitalist Progress Note ---
Date of Service March 10, 2023 Assessment & Plan (1) Acute respiratory failure with hypoxia: Plan: Acute respiratory failure w/ hypoxia secondary to multifocal bacterial pneumonia Acute/unstable With L>R involvement, no PE on CTA Chest. Initially requiring HFNC 85% and 25L, now weaned down to 7LNC Leukocytosis improving No fevers - Blood cultures-NGTD, will follow -continue Duonebs QIDR and q2 prn - continue Mucinex 1200mg BID - Sputum culture and gram stain pending -continue Rocephin 2g IV daily x7 day course and Zithromax but change to 250mg IV daily x 5 day course - APAP prn headache/pain/fever -recommend f/u CXR or Chest CT in 4-6 weeks to ensure resolution of infiltrate as this is his second PNA in 5 months (2) Sepsis: Plan: Sepsis secondary to bacterial pneumonia - criteria met by leukocytosis, fever, tachycardia Acute/unstable but improving as above (3) Multifocal pneumonia: Plan: as above (4) Hypomagnesemia: Plan: resolved with replacement (5) Hypertension: Plan: Chronic/stable - Takes Losartan/HCTZ 100-12.5mg at HS continue home meds Plan DVT ppx will be provided with Lovenox. Dispo-continued stay on tele Admission and Anticipated Discharge Date Admission Date: March 09, 2023 Subjective Feeling better, weaned down to 7L NC from HFNC. Not coughing up much sputum. Walked one lap in halls on O2 and dropped to the 70s as per nursing staff No diarrhea. Tele with NSR, rates 70-90s Physical Exam Constitutional: WD/WN, vitals as above Respiratory: normal respiratory effort; no cough and not tachypneic Auscultation: + crackles (left middle and lower lung rosas, right lower lung rosas) and + rhonchi (left middle lung field); no wheezes Cardiovascular: RRR, no murmur, no edema Skin: no rashes, warm and dry Psychiatric: A+Ox3, euthymic affect Results & Data Results & Data Vital Signs (Past 12 Hours) Vital Signs Temp Pulse Pulse Resp BP Pulse Ox O2 Del Method 03/10/23 11:42 37.1 C 83 20 98/58 L 92 High Flow Nasal Cannula 03/10/23 08:00 High Flow Nasal Cannula 03/10/23 10:31 81 16 91 Nasal Cannula 03/10/23 07:49 36.4 C L 92 H 20 96/57 L 94 High Flow Nasal Cannula 03/10/23 07:24 71 16 97 High Flow Nasal Cannula 03/10/23 07:23 71 16 97 High Flow Nasal Cannula 03/10/23 03:03 37.2 C 81 28 H 107/70 94 High Flow Nasal Cannula O2 Flow Rate FiO2 03/10/23 11:42 7 03/10/23 08:00 25 60 03/10/23 10:31 7 03/10/23 07:49 25 60 03/10/23 07:24 25 70 03/10/23 07:23 25 70 03/10/23 03:03 25 70 Laboratory Results CBC, BMP reviewed PG Care Time/CCT Total # of Minutes Spent Total Time Spent with Patient: Total time spent is greater than 50% in coordination of care (as documented) at patient's floor/unit and/or counseling patient: Coding Level of Care Code 32772 SUB INP/OBS CARE 2/35MIN Diagnoses Acute respiratory failure with hypoxia J96.01 Sepsis A41.9 Multifocal pneumonia J18.9 Hypomagnesemia E83.42 Hypertension I10
[2023-03-10] MEDS: hydroCHLOROthiazide 25 MG TAB PO SCH (20:31)
[2023-03-10] MEDS: LOSARTAN POTASSIUM 50 MG TAB PO SCH (20:32)
[2023-03-11 06:06] LABS: Basophils # (auto) 0.05 K/uL (0-0.2); Basophils % (auto) 0.5 %; Eosinophils # (auto) 0.34 K/uL (0-0.50); Eosinophils % (auto) 3.2 %; Hemoglobin 10.3 g/dl (14.0-18.0); Immature Granulocytes # (auto) 0.06 K/uL (0.01-0.20); Immature Granulocytes % (auto) 0.6 %; Lymphocytes # (auto) 1.61 K/uL (1.2-3.4); Lymphocytes % (auto) 15.2 %; Mean Corpuscular Hgb Conc 33.2 g/dL (32.0-36.0); Mean Corpuscular Volume 93.4 fL (80.0-100.0); Mean Platelet Volume 9.2 fL (9.4-12.4); Monocytes # (auto) 0.56 K/uL (0.11-0.59); Monocytes % (auto) 5.3 %; Neutrophils # (auto) 7.95 K/uL (1.40-6.50); Neutrophils % (auto) 75.2 %; Platelet Count 307 K/uL (130-400); RDW Coefficient of Variation 13.3 % (11.5-14.5); RDW Standard Deviation 45.6 fL (36.4-46.3); Red Blood Count 3.32 M/uL (4.70-6.10); White Blood Count 10.57 K/ul (4.8-10.8)
[2023-03-11 06:23] LABS: Calcium 9.2 mg/dl (8.6-10.3); Est GFR (African American) 83.5 ml/min; Est GFR (Non-African American) 72.1 ml/min; Magnesium 1.6 mg/dl (1.7-2.4); Potassium 4.5 mmol/L (3.5-5.1)
[2023-03-11] MEDS: ALBUT/IPRATROP 3MG/0.5MG NEB 3 ML VIAL NEB SCH ×4 (07:43→19:38)
[2023-03-11] MEDS ORDERED: MAGNESIUM SULFATE / D5W 1 GM/100 ML BAG IV ONE (07:54)
[2023-03-11] MEDS: ENOXAPARIN INJ 40 MG/0.4 ML SYR SQ SCH (08:05)
[2023-03-11] MEDS: guaiFENesin 600 MG TABCR PO SCH ×2 (08:05→20:51)
[2023-03-11] MEDS: cefTRIAXone SODIUM 2,000 MG in DEXTROSE 5% 50 ML IV SCH (08:08)
[2023-03-11] MEDS ORDERED: AZITHROMYCIN 250 MG in DEXTROSE 5% 250 ML IV SCH (09:00)
--- NOTE | 2023-03-11 13:04 | Hospitalist Progress Note ---
Date of Service March 11, 2023 Assessment & Plan (1) Acute respiratory failure with hypoxia: Plan: Acute respiratory failure w/ hypoxia secondary to multifocal bacterial pneumonia With L>R involvement, no PE on CTA Chest. Initially requiring HFNC 85% and 25L, now weaned down to 4LNC fairly quickly over 2 days Leukocytosis now resolved No fevers - Blood cultures-NGTD, will follow -sputum cx prelim light normal [place]-follow to final -continue Duonebs QIDR and q2 prn - continue Mucinex 1200mg BID -continue Rocephin 2g IV daily x7 day course (switch to po cefdinir at discharge) and Zithromax 250mg daily x 5 day course-will change to po for tomorrow - APAP prn headache/pain/fever -recommend f/u CXR or Chest CT in 4-6 weeks to ensure resolution of infiltrate as this is his second PNA in 5 months (2) Sepsis: Plan: Sepsis secondary to bacterial pneumonia - criteria met by leukocytosis, fever, tachycardia now resolved (3) Multifocal pneumonia: Plan: as above (4) Hypomagnesemia: Plan: slightly low again today replace and follow level in AM (5) Hypertension: Plan: Chronic/stable - Takes Losartan/HCTZ 100-12.5mg at HS continue home meds Plan DVT ppx will be provided with Lovenox. Dispo-continued stay on tele but likely dc to home tomorrow if continues to improve. Will need a 2 step walk test prior to discharge Admission and Anticipated Discharge Date Admission Date: March 09, 2023 Subjective Feeling better, now coughing up some more watery sputum with use of flutter valve. Weaned down to 4LNC and is ambulating the halls frequently-already walked the halls for almost 2 hours today. No diarrhea, had a normal BM today. Not SOB, no other concerns, hopeful to continue weaning O2 and go home by tomorrow Tele with NSR 60-80s Physical Exam Constitutional: WD/WN, vitals as above Respiratory: normal respiratory effort; no cough and not tachypneic Auscultation: + crackles (left middle and lower lung rosas, right lower lung rosas); no wheezes Cardiovascular: RRR, no murmur, no edema Skin: no rashes, warm and dry Psychiatric: A+Ox3, euthymic affect Results & Data Results & Data Vital Signs (Past 12 Hours) Vital Signs Temp Pulse Pulse Resp BP Pulse Ox O2 Del Method 03/11/23 08:00 Nasal Cannula 03/11/23 11:23 82 18 92 Nasal Cannula 03/11/23 07:44 78 16 92 Nasal Cannula 03/11/23 07:31 36.7 C 82 18 119/79 94 Nasal Cannula, High Flow Nasal Cannula 03/11/23 03:42 37.1 C 84 18 104/65 91 Nasal Cannula 03/11/23 02:37 74 O2 Flow Rate 03/11/23 08:00 6 03/11/23 11:23 6 03/11/23 07:44 6 03/11/23 07:31 6 03/11/23 03:42 6.0 03/11/23 02:37 Laboratory Results CBC, BMP, mag reviewed PG Care Time/CCT Total # of Minutes Spent Total Time Spent with Patient: Total time spent is greater than 50% in coordination of care (as documented) at patient's floor/unit and/or counseling patient: Coding Level of Care Code 82426 SUB INP/OBS CARE 2/35MIN Diagnoses Acute respiratory failure with hypoxia J96.01 Sepsis A41.9 Multifocal pneumonia J18.9 Hypomagnesemia E83.42 Hypertension I10
[2023-03-11] MEDS: hydroCHLOROthiazide 25 MG TAB PO SCH (20:51)
[2023-03-11] MEDS: LOSARTAN POTASSIUM 50 MG TAB PO SCH (20:52)
[2023-03-12 07:13] LABS: Hematocrit (blood only) 31.5 % (42.0-52.0); Hemoglobin 10.6 g/dl (14.0-18.0); Mean Corpuscular Hemoglobin 30.9 pg (25.0-34.0); Mean Corpuscular Hgb Conc 33.7 g/dL (32.0-36.0); Mean Corpuscular Volume 91.8 fL (80.0-100.0); Mean Platelet Volume 10.6 fL (9.4-12.4); Platelet Count 311 K/uL (130-400); RDW Coefficient of Variation 13.1 % (11.5-14.5); RDW Standard Deviation 44.1 fL (36.4-46.3); Red Blood Count 3.43 M/uL (4.70-6.10); White Blood Count 7.46 K/ul (4.8-10.8)
[2023-03-12] MEDS: ALBUT/IPRATROP 3MG/0.5MG NEB 3 ML VIAL NEB SCH ×2 (07:27→10:52)
[2023-03-12 07:29] LABS: BUN Creatinine Ratio 18.9 (10-20); Calcium 9.4 mg/dl (8.6-10.3); Creatinine Clr Calc Pharmacy 87.6 ml/min; Est GFR (African American) 87.4 ml/min; Est GFR (Non-African American) 75.4 ml/min; Magnesium 1.7 mg/dl (1.7-2.4); Potassium 4.2 mmol/L (3.5-5.1)
[2023-03-12 07:38] LABS: Basophils # (auto) 0.04 K/uL (0-0.2); Basophils % (auto) 0.5 %; Eosinophils # (auto) 0.35 K/uL (0-0.50); Eosinophils % (auto) 4.7 %; Immature Granulocytes # (auto) 0.05 K/uL (0.01-0.20); Immature Granulocytes % (auto) 0.7 %; Lymphocytes # (auto) 1.56 K/uL (1.2-3.4); Lymphocytes % (auto) 20.9 %; Monocytes # (auto) 0.58 K/uL (0.11-0.59); Monocytes % (auto) 7.8 %; Neutrophils # (auto) 4.88 K/uL (1.40-6.50); Neutrophils % (auto) 65.4 %; RBC Morphology Unremarkable
[2023-03-12] MEDS: cefTRIAXone SODIUM 2,000 MG in DEXTROSE 5% 50 ML IV SCH (08:10)
[2023-03-12] MEDS: guaiFENesin 600 MG TABCR PO SCH (08:11)
[2023-03-12] MEDS: ENOXAPARIN INJ 40 MG/0.4 ML SYR SQ SCH (08:12)
[2023-03-12] MEDS ORDERED: AZITHROMYCIN 250 MG TAB PO SCH (09:00)
--- NOTE | 2023-03-12 21:40 | Discharge Summary ---
Date of Service March 12, 2023 Admission HPI Per Admitting Provider Dilan Casiano is a 62 yo WM with a pmhx of HTN who presents to the ER today c/o dyspnea that has been progressively worsening since the end of January. He reports that he had a similar event in September, was put on a course of antibiotics and symptoms seemed to resolve. He denies any underlying lung disease, immunosuppressive conditions, h/o cancer, or tobacco use. 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 He noticed over the past 24 hours that he has has been feeling poorly, has had a fever and worsening shortness of breath, particularly with exertion. He did admit to flying to [place] recently but was feeling poorly prior to his trip. No h/o clotting disorders either personally or in his family. He contacted urgent care clinic this morning to arrange to be seen and was asked what his pulse oximetry was. He was able to measure this using his smart watch and noted that it was 79%. He told the person he was speaking to this and she told him to call an ambulance to be taken for prompt evaluation. In the ER, he was febrile with a temp of 38.4C, tachycardic, and significantly hypoxic. Hiswork up demonstrated a wbc count of 19,470 with left shift and cxr was consistent with multifocal pneumonia. His procal is elevated at nearly 3. Normal lactate of 1.5. He was medicated with a dose of Rocephin and Zithromax and placed on high flow nasal cannula at 25L with an FiO2 of 85%. He is currently comfortable, denies cp or dyspnea. He denies ill contacts and is negative for COVID, flu, and RSV. He was vaccinated and boosted for COVID-19 and influenza. He has been referred to the hospitalist service for admission for ongoing treatment. Admission Exam Per Admitting Provider GENERAL: 62 yo Well-developed, well-nourished WM. A&Ox4. NAD. LUNGS: Nonlabored. Bibasilar coarse crackles. No wheezes or rhonchi. CARDIOVASCULAR: Regular rate and rhythm. No M/G/R. No JVD. ABDOMEN: Soft, non-tender and non-distended. BS normoactive x 4 quad. SKIN: Warm, dry, intact. No rashes or lesions. Principal Diagnosis Multifocal PNA Discharge Exam Constitutional WD/WN, vitals as above Eyes + anicteric sclerae ENMT external ear and nose normal, oropharynx normal Neck trachea midline, no thyromegaly Respiratory normal respiratory effort; no respiratory distress and no labored breathing Auscultation: + rhonchi (bilateral ) Cardiovascular RRR, no murmur, no edema Musculoskeletal Head/Neck/Chest: normocephalic and head atraumatic Skin no rashes, warm and dry Psychiatric A+Ox3, euthymic affect Discharge Data Allergies Allergy/AdvReac Type Severity Reaction Status Date / Time lisinopril AdvReac Mild Cough Unverified 03/09/23 09:26 Consultations 03/09/23 09:13 ED Decision to Admit Stat Ordered Studies 03/09/23 10:40 CT angio chest PE protocol Stat Hospital Course (1) Acute respiratory failure with hypoxia: Mr. Casiano is a 62 yo M who was admitted for acute respiratory failure w/ hypoxia - found to be secondary to a multifocal bacterial pneumonia (L worse than R) - Chest CTA was done and confirmed evidence of multifocal PNA but showed no evidence for a PE - WBC was elevated on admission but normalized by discharge. Blood cultures showed no growth through 48 hours. Procal was elevated on admission. - Initially requiring HFNC 85% and 25L, quickly improved. Two step done prior to discharge showed no need for home O2 therapy - patient was treated with Rocephin 2g Iv daily (3 days completed) and Azithromycin 250mg daily (4 days completed). He was discharged with remainder of antibiotic course to complete (1 dose of azithromycin for total of 5 day course and 4 days worth of cefdinir for total of 7 day course). Recommend f/u CXR or Chest CT in 4-6 weeks to ensure resolution of infiltrate as this is his second PNA in 5 months (2) Sepsis: Sepsis secondary to bacterial pneumonia - criteria met by leukocytosis, fever, tachycardia now resolved (3) Multifocal pneumonia: as above (4) Hypomagnesemia: - slightly low in hospital - PO replacement given and level normalized by discharge (5) Hypertension: Chronic/stable - Takes Losartan/HCTZ 100-12.5mg at HS continue home meds Total Time Total Time Spent Total Time Spent (In Minutes): 32 Total Time Includes: Examination of the Patient, Discharge Planning and Medication Reconciliation Discharge Plan Discharge Items Patient Disposition: Home - Self-Care Reason For Visit: ARF, B/L PNEUMONIA Discharge Diagnosis: Sepsis secondary to a community acquired pneumonia Activity: Resume your previous activity Non-emergency contact: Primary Care Provider Call non-emergency contact if: you have any medication questions and your symptoms worsen Follow-up/Referrals: Julian Carlos DO [Primary Care Provider] - Diet: Regular Addtl Attending Provider Instructions: You were hospitalized at [facility] for a multifocal pneumonia (infection of the lung). You did require supplemental oxygen during your stay, but by the time of your discharge you were breathing well on room air alone. You were treated with antibiotics and clinically improved under our care. You should complete the following antibiotic regimen upon discharge: Take azithromycin 250mg 1 tab on the morning of 03/13/23. Take cefdinir 300mg twice daily for 4 additional days starting on 03/13/23. You may also continue to take Mucinex (available over the counter) to help loosen your sputum (making it easier to cough up and out). If needed, you may use your albuterol inhaler up to every 4 hours (although based on how you were doing, I doubt you will need it this frequently, if at all). Use for wheezing/chest tightness. Please see your PCP, Dr. Jordi Carlos, in follow up care within one week of your hospital discharge. You should have a repeat chest x-ray in 4-6 weeks after discharge to ensure reso lution of the consolidation in your lungs. Terrance Lay will order this for you at your Pending Studies at Discharge: No Stand-Alone Forms: My [facility], Smoking Cessation Medications and DC Order Prescriptions: New azithromycin 250 mg Tablet 250 mg PO QAM 1 Days Qty: 1 0RF cefdinir 300 mg capsule 300 mg PO BID 4 Days Qty: 8 0RF Continued albuterol sulfate 90 mcg/actuation HFA aerosol inhaler 1 puff INHALATION Q4H PRN (Reason: Shortness Of Breath) losartan-hydrochlorothiazide 100-12.5 mg tablet 1 tab PO DAILY Discharge Orders: Discharge Order (Routine); Ordered 03/12/23 Ordered By: Tenisha Hart Admission Data Admit Date/Time: 03/09/23 11:05 Attending Provider: Tenisha Hart Admit Provider: Vitor Salmeron Primary Care Provider: Julian Carlos Other Providers: Vitor Salmeron ; Margaret Zarco Other Interventions: Discharge Summary Assessment (RN) Last Done: 03/12/23 11:54 Coding Level of Care Code 20910 INP/OBS DISCH >30 MIN Diagnoses Acute respiratory failure with hypoxia J96.01 Sepsis A41.9 Multifocal pneumonia J18.9 Hypomagnesemia E83.42 Hypertension I10
== END 2023-03-12 12:53 | disposition home or self-care (01) | DRG 871 ==
LOC: ED 07:36 → 2S 11:05 → SUATTDRO 11:05 → 2S 11:40
DX: J96.01 Acute respiratory failure with hypoxia; I10 Essential (primary) hypertension; H90.3 Sensorineural hearing loss, bilateral; E83.42 Hypomagnesemia; J15.9 Unspecified bacterial pneumonia; Z88.8 Allergy status to other drugs, medicaments and biological substances; A41.9 Sepsis, unspecified organism

== ENCOUNTER 2023-05-21 15:57 | Observation (INO) ==
--- NOTE | 2023-05-21 16:19 | Emergency Department Note ---
Impression & Plan Hypoxia ADMIT ED Provider Note HPI: The patient is a 62-year-old male who presents emergency department with multiple issues today. Patient states over the past 6 days he has had some waxing and waning symptoms of fever and chills at night. States he is getting night sweats. Patient states he has also had a cough and feels more short of breath mostly with exertion. Patient denies any chest pain. Patient states he has been monitoring his pulse ox at home through his Apple Watch and at times it has been in the low 90s. On arrival here to the ED the patient is alert, he is hemodynamically stable, he is afebrile on presentation, his oxygen saturation is 92% on room air on my initial assessment he is without increased work of breathing. ROS: - Per HPI Differential Diagnosis: Viral upper respiratory infection to include COVID-19 and influenza A, acute bacterial pneumonia, sepsis, urinary tract infection, Lyme disease, Anaplasma, amongst other potential pathologies. *Outpatient medications and allergy history reviewed. *Pertinent external medical records reviewed. PE: General: Alert HEENT: Normocephalic, trachea midline Eyes: Extraocular eye movement is intact, no scleral erythema Pulmonary: Clear to auscultation bilaterally, no wheezing Cardio: Regular rate and rhythm GI: Abdomen is soft to palpation : No suprapubic tenderness MSK: No evidence of trauma or malformation of the extremities, no edema Skin: No evidence of rash Neuro: Alert, no focal deficits Psychiatric: Cooperative import specialist: (As interpreted by myself): - An order was placed for continuous cardiac monitoring - Patient was noted to be in sinus rhythm with a rate of 90 EKG: (As interpreted by myself): Rate: 89 Rhythm: Normal sinus rhythm Intervals: Within normal limits ST changes: No ST elevation Time: 1619 Interventions provided in ED: -IV ceftriaxone, IV azithromycin, supplemental oxygen Medical Decision Making: Patient presented to the emergency department with subjective fever and chills as well as dyspnea. He states his symptoms have been ongoing for about the past 6 days. He does have a history of hypoxic respiratory failure secondary to multifocal pneumonia that required admission previously in February at which time he was placed on high flow nasal cannula oxygen for correction. Shortly after the patient arrived IV was established and lab work obtained, patient was maintained on medical education manager. Patient initially did not require supplemental oxygen however did have episodes of desaturation to 88% on room air that were sustained and therefore he was placed on 3L nasal cannula oxygen with good improvement in his saturation. Lab work shows a leukocytosis of 16.91, hemoglobin is stable, platelet count is within normal limits, there is a neutrophilic predominance to the patient's leukocytosis on differential. Venous blood gas shows mild alkalosis with low PCO2 at 35, CMP shows mild hyponatremia 134, otherwise no critical abnormalities are noted, troponin is negative, EKG shows sinus rhythm without any evidence of acute ischemic changes. Viral panel testing was obtained and is completely nega tive on bio fire. Blood cultures were drawn in the ED and the patient was started prophylactically on ceftriaxone and azithromycin over suspicion for pulmonary infection given his recent symptoms as well as cough and shortness of breath with significant leukocytosis and history of multifocal pneumonia with hypoxic respiratory failure. Chest x-ray did not suggest any evidence of pneumonia, given the patient's hypoxia decision was made to obtain CT angiography to evaluate for the possibility of pulmonary embolism and for more sensitive evaluation for the possibility of a developing pneumonia. CT angiography does not show any evidence of PE, does show evidence of developing pneumonia. I suspect this is the source of the patient's hypoxia as he has had previous similar presentations. Patient updated and aware, he is in agreement for admission, patient is stable now on 3 L nasal cannula oxygen with saturations at 96% on my evaluation prior to admission. [facility] hospitalist service was consulted for admission. Consultants: Hospitalist service Disposition discussion held by myself with: Patient * CRITICAL CARE TIME: (45) minutes -Stabilization of hypoxia with oxygen saturation less than 90% on room air requiring supplemental oxygen for correction, time spent at the bedside, interpretation of diagnostic studies, discussion with other healthcare providers and arrangement of admission Diagnosis: 1. Acute hypoxic respiratory failure 2. Bilateral pneumonia 3. Leukocytosis 4. Dyspnea, acute 5. Subjective fevers Disposition: Admission Yayo Greenberg DO Emergency Medicine Past Med/Surg History Medical History (Updated 05/21/23 @ 18:27 by Yayo Greenberg DO) Hypertension Sensorineural hearing loss of both ears Tinnitus, bilateral Surgical History (Updated 03/09/23 @ 10:26 by Lorena Jasmine PA-C) No significant past surgical history Family History (Updated 03/09/23 @ 10:26 by Lorena A. Jasmine, PA-C) Father COPD (chronic obstructive pulmonary disease) Mother Dementia Social History Smoking Status: Never smoker Second Hand Exposure: No; Do You Dip or Chew Tobacco: No; Hx Alcohol Use: Yes Alcohol type: hard liquor Hx Substance Use: No Preferred Language: Spanish Communication Ability: Effective Associate Chief Nurse Required: No Beliefs That Will Affect Care: None Current Living Situation: Alone Feels Safe at Home: Yes Assistive Devices: None Allergies Allergies Allergy/AdvReac Type Severity Reaction Status Date / Time lisinopril AdvReac Mild Cough Unverified 03/09/23 09:26 Home Meds Home Medications Medication Instructions Recorded Confirmed albuterol sulfate 90 mcg/actuation 1 puff inhalation Q4H PRN 03/09/23 05/21/23 aerosol inhaler Shortness Of Breath losartan 100 1 tab PO DAILY 03/09/23 05/21/23 mg-hydrochlorothiazide 12.5 mg tablet Results & Data (ED) Vital Signs Vital Signs - 24 hr 05/21/23 16:04 05/21/23 16:10 05/21/23 16:15 Temperature 36.4 C L Temperature Source Temporal Artery Scan Pulse Rate 96 H 92 H Pulse Rate [Apical] 92 H Pulse Rate from SpO2 Sensor Pulse Rhythm Respiratory Rate 18 19 Respiratory Effort / Characteristics Non-Labored Spontaneous Respiratory Depth Normal Normal Blood Pressure 121/84 Blood Pressure [Right Arm] 140/78 Blood Pressure Mean 96 Blood Pressure Mean [Right Arm] 98 Blood Pressure Position Sitting Pulse Oximetry 94 93 Oxygen Delivery Method Room Air Room Air Oxygen Flow Rate Sepsis Recent Fever Within 48 Hours Yes Sepsis New/Unexplained Change in Mental Status No Sepsis Action Taken by Nursing No Action Required 05/21/23 16:47 05/21/23 16:47 05/21/23 16:15 Temperature Temperature Source Pulse Rate 95 H Pulse Rate [Apical] Pulse Rate from SpO2 Sensor 95 H Pulse Rhythm Respiratory Rate 26 H Respiratory Effort / Characteristics Non-Labored Spontaneous Respiratory Depth Normal Blood Pressure Blood Pressure [Right Arm] Blood Pressure Mean Blood Pressure Mean [Right Arm] Blood Pressure Position Pulse Oximetry 93 92 Oxygen Delivery Method Room Air Room Air Oxygen Flow Rate Sepsis Recent Fever Within 48 Hours Sepsis New/Unexplained Change in Mental Status Sepsis Action Taken by Nursing 05/21/23 16:30 05/21/23 17:15 05/21/23 17:16 Temperature Temperature Source Pulse Rate 91 H 88 Pulse Rate [Apical] Pulse Rate from SpO2 Sensor 91 H Pulse Rhythm Regular Respiratory Rate 30 H 28 H Respiratory Effort / Characteristics Respiratory Depth Blood Pressure Blood Pressure [Right Arm] Blood Pressure Mean Blood Pressure Mean [Right Arm] Blood Pressure Position Pulse Oximetry 93 88 L 94 Oxygen Delivery Method Room Air Nasal Cannula Oxygen Flow Rate 3 Sepsis Recent Fever Within 48 Hours Sepsis New/Unexplained Change in Mental Status Sepsis Action Taken by Nursing 05/21/23 17:00 05/21/23 17:30 Temperature Temperature Source Pulse Rate 86 86 Pulse Rate [Apical] Pulse Rate from SpO2 Sensor 85 87 Pulse Rhythm Respiratory Rate 26 H 28 H Respiratory Effort / Characteristics Respiratory Depth Blood Pressure 139/89 144/101 H Blood Pressure [Right Arm] Blood Pressure Mean 105 115 Blood Pressure Mean [Right Arm] Blood Pressure Position Pulse Oximetry 90 93 Oxygen Delivery Method Oxygen Flow Rate Sepsis Recent Fever Within 48 Hours Sepsis New/Unexplained Change in Mental Status Sepsis Action Taken by Nursing Laboratory Data 05/21/23 16:35 05/21/23 16:35 Lab Results 05/21/23 05/21/23 05/21/23 Range/Units 16:20 16:35 16:35 WBC 16.91 H (4.8-10.8) K/ul RBC 4.52 L (4.70-6.10) M/uL Hgb 14.2 (14.0-18.0) g/dl Hct 40.2 L (42.0-52.0) % MCV 88.9 (80.0-100.0) fL MCH 31.4 (25.0-34.0) pg MCHC 35.3 (32.0-36.0) g/dL RDW Std Deviation 42.5 (36.4-46.3) fL RDW Coeff of Rajesh 13.1 (11.5-14.5) % Plt Count 229 (130-400) K/uL MPV 9.8 (9.4-12.4) fL Immature Gran % (Auto) 0.9 % Neut % (Auto) 87.0 % Lymph % (Auto) 6.8 % [place] % (Auto) 4.1 % Eos % (Auto) 0.7 % Baso % (Auto) 0.5 % Neut # (Auto) 14.69 H (1.40-6.50) K/uL Lymph # (Auto) 1.15 L (1.2-3.4) K/uL [place] # (Auto) 0.70 H (0.11-0.59) K/uL Eos # (Auto) 0.12 (0-0.50) K/uL Baso # (Auto) 0.09 (0-0.2) K/uL Immature Gran # (Auto) 0.16 (0.01-0.20) K/uL PT 11.4 (9.0-12.0) Seconds INR 1.0 (0.9-1.1) VBG pH (7.36-7.41) VBG pCO2 (38-50) mmHg VBG pO2 mmHg VBG HCO3 mmol/L VBG O2 Saturation % VBG Base Excess mEq/L Sodium (136-145) mmol/L Potassium (3.5-5.1) mmol/L Chloride (98-107) mmol/L Carbon Dioxide (21-32) mmol/L Anion Gap (3-11) BUN (6-23) mg/dl Creatinine (0.6-1.4) mg/dl Est Cr Clr Drug Dosing ml/min Est GFR ( Amer) ml/min Est GFR (Non-Af Amer) ml/min BUN/Creatinine Ratio (10-20) Glucose (70-99(Fasting)) mg/dl Calcium (8.6-10.3) mg/dl Total Bilirubin (0.2-1.0) mg/dl AST (13-39) U/L ALT (7-52) U/L Alkaline Phosphatase (34-104) U/L Troponin I High Sens (0-20) pg/ml B-Natriuretic Peptide (0-100) pg/ml Total Protein (6.0-8.3) gm/dl Albumin (3.4-5.0) gm/dl Globulin (2.5-4.0) gm/dl Albumin/Globulin Ratio (0.9-2) Urine Color Urine Appearance (Clear) Urine pH (4.5-7.5) Ur Specific [place] (1.000-1.030) Urine Protein (Negative) Urine Glucose (UA) (Negative) Urine Ketones (Negative) Urine Blood (Negative) Urine Nitrite (Negative) Urine Bilirubin (Negative) Urine Urobilinogen (Negative) Ur Leukocyte Esterase (Negative) Adenovirus (PCR) Not Detected (NotDetected) Anaplasma Smear See Comment Babesia Smear See Comment B. pertussis DNA (PCR) Not Detected (NotDetected) B.parapertussis DNA PCR Not Detected (NotDetected) Lyme Disease IgG Ab (Negative) Lyme Disease IgM Ab (Negative) C. pneumoniae DNA (PCR) Not Detected (NotDetected) Coronavirus OC43 (PCR) Not Detected (NotDetected) Coronavirus HKU1 (PCR) Not Detected (NotDetected) Coronavirus 229E (PCR) Not Detected (NotDetected) SARS-CoV-2 (PCR) Not Detected (NotDetected) Coronavirus NL63 (PCR) Not Detected (NotDetected) Human Metapneumovir PCR Not Detected (NotDetected) Influenza Type A (PCR) Not Detected (NotDetected) Influenza Type B (PCR) Not Detected (NotDetected) M. pneumoniae (PCR) Not Detected (NotDetected) Parainfluenza 1 (PCR) Not Detected (NotDetected) Parainfluenza 2 (PCR) Not Detected (NotDetected) Parainfluenza 3 (PCR) Not Detected (NotDetected) Parainfluenza 4 (PCR) Not Detected (NotDetected) RSV (PCR) Not Detected (NotDetected) Entero/Rhino (PCR) Not Detected (NotDetected) 05/21/23 05/21/23 05/21/23 Range/Units 16:35 16:35 16:35 WBC (4.8-10.8) K/ul RBC (4.70-6.10) M/uL Hgb (14.0-18.0) g/dl Hct (42.0-52.0) % MCV (80.0-100.0) fL MCH (25.0-34.0) pg MCHC (32.0-36.0) g/dL RDW Std Deviation (36.4-46.3) fL RDW Coeff of Rajesh (11.5-14.5) % Plt Count (130-400) K/uL MPV (9.4-12.4) fL Immature Gran % (Auto) % Neut % (Auto) % Lymph % (Auto) % [place] % (Auto) % Eos % (Auto) % Baso % (Auto) % Neut # (Auto) (1.40-6.50) K/uL Lymph # (Auto) (1.2-3.4) K/uL [place] # (Auto) (0.11-0.59) K/uL Eos # (Auto) (0-0.50) K/uL Baso # (Auto) (0-0.2) K/uL Immature Gran # (Auto) (0.01-0.20) K/uL PT (9.0-12.0) Seconds INR (0.9-1.1) VBG pH 7.48 H (7.36-7.41) VBG pCO2 35 L (38-50) mmHg VBG pO2 34 mmHg VBG HCO3 26 mmol/L VBG O2 Saturation 61.9 % VBG Base Excess 2.8 mEq/L Sodium 134 L (136-145) mmol/L Potassium 3.6 (3.5-5.1) mmol/L Chloride 103 (98-107) mmol/L Carbon Dioxide 23 (21-32) mmol/L Anion Gap 8 (3-11) BUN 24 H (6-23) mg/dl Creatinine 1.11 (0.6-1.4) mg/dl Est Cr Clr Drug Dosing 84.1 ml/min Est GFR ( Amer) 82.6 ml/min Est GFR (Non-Af Amer) 71.3 ml/min BUN/Creatinine Ratio 21.6 H (10-20) Glucose 136 H (70-99(Fasting)) mg/dl Calcium 9.5 (8.6-10.3) mg/dl Total Bilirubin 1.3 H (0.2-1.0) mg/dl AST 14 (13-39) U/L ALT 11 (7-52) U/L Alkaline Phosphatase 66 (34-104) U/L Troponin I High Sens 14.1 (0-20) pg/ml B-Natriuretic Peptide 80 (0-100) pg/ml Total Protein 7.8 (6.0-8.3) gm/dl Albumin 3.7 (3.4-5.0) gm/dl Globulin 4.1 H (2.5-4.0) gm/dl Albumin/Globulin Ratio 0.9 (0.9-2) Urine Color Urine Appearance (Clear) Urine pH (4.5-7.5) Ur Specific [place] (1.000-1.030) Urine Protein (Negative) Urine Glucose (UA) (Negative) Urine Ketones (Negative) Urine Blood (Negative) Urine Nitrite (Negative) Urine Bilirubin (Negative) Urine Urobilinogen (Negative) Ur Leukocyte Esterase (Negative) Adenovirus (PCR) (NotDetected) Anaplasma Smear Babesia Smear B. pertussis DNA (PCR) (NotDetected) B.parapertussis DNA PCR (NotDetected) Lyme Disease IgG Ab (Negative) Lyme Disease IgM Ab (Negative) C. pneumoniae DNA (PCR) (NotDetected) Coronavirus OC43 (PCR) (NotDetected) Coronavirus HKU1 (PCR) (NotDetected) Coronavirus 229E (PCR) (NotDetected) SARS-CoV-2 (PCR) (NotDetected) Coronavirus NL63 (PCR) (NotDetected) Human Metapneumovir PCR (NotDetected) Influenza Type A (PCR) (NotDetected) Influenza Type B (PCR) (NotDetected) M. pneumoniae (PCR) (NotDetected) Parainfluenza 1 (PCR) (NotDetected) Parainfluenza 2 (PCR) (NotDetected) Parainfluenza 3 (PCR) (NotDetected) Parainfluenza 4 (PCR) (NotDetected) RSV (PCR) (NotDetected) Entero/Rhino (PCR) (NotDetected) 05/21/23 05/21/23 Range/Units 16:35 18:05 WBC (4.8-10.8) K/ul RBC (4.70-6.10) M/uL Hgb (14.0-18.0) g/dl Hct (42.0-52.0) % MCV (80.0-100.0) fL MCH (25.0-34.0) pg MCHC (32.0-36.0) g/dL RDW Std Deviation (36.4-46.3) fL RDW Coeff of Rajesh (11.5-14.5) % Plt Count (130-400) K/uL MPV (9.4-12.4) fL Immature Gran % (Auto) % Neut % (Auto) % Lymph % (Auto) % [place] % (Auto) % Eos % (Auto) % Baso % (Auto) % Neut # (Auto) (1.40-6.50) K/uL Lymph # (Auto) (1.2-3.4) K/uL [place] # (Auto) (0.11-0.59) K/uL Eos # (Auto) (0-0.50) K/uL Baso # (Auto) (0-0.2) K/uL Immature Gran # (Auto) (0.01-0.20) K/uL PT (9.0-12.0) Seconds INR (0.9-1.1) VBG pH (7.36-7.41) VBG pCO2 (38-50) mmHg VBG pO2 mmHg VBG HCO3 mmol/L VBG O2 Saturation % VBG Base Excess mEq/L Sodium (136-145) mmol/L Potassium (3.5-5.1) mmol/L Chloride (98-107) mmol/L Carbon Dioxide (21-32) mmol/L Anion Gap (3-11) BUN (6-23) mg/dl Creatinine (0.6-1.4) mg/dl Est Cr Clr Drug Dosing ml/min Est GFR ( Amer) ml/min Est GFR (Non-Af Amer) ml/min BUN/Creatinine Ratio (10-20) Glucose (70-99(Fasting)) mg/dl Calcium (8.6-10.3) mg/dl Total Bilirubin (0.2-1.0) mg/dl AST (13-39) U/L ALT (7-52) U/L Alkaline Phosphatase (34-104) U/L Troponin I High Sens (0-20) pg/ml B-Natriuretic Peptide (0-100) pg/ml Total Protein (6.0-8.3) gm/dl Albumin (3.4-5.0) gm/dl Globulin (2.5-4.0) gm/dl Albumin/Globulin Ratio (0.9-2) Urine Color Yellow Urine Appearance Clear (Clear) Urine pH 6.0 (4.5-7.5) Ur Specific [place] 1.014 (1.000-1.030) Urine Protein Negative (Negative) Urine Glucose (UA) Negative (Negative) Urine Ketones Negative (Negative) Urine Blood Negative (Negative) Urine Nitrite Negative (Negative) Urine Bilirubin Negative (Negative) Urine Urobilinogen Negative (Negative) Ur Leukocyte Esterase Negative (Negative) Adenovirus (PCR) (NotDetected) Anaplasma Smear Babesia Smear B. pertussis DNA (PCR) (NotDetected) B.parapertussis DNA PCR (NotDetected) Lyme Disease IgG Ab Negative (Negative) Lyme Disease IgM Ab Negative (Negative) C. pneumoniae DNA (PCR) (NotDetected) Coronavirus OC43 (PCR) (NotDetected) Coronavirus HKU1 (PCR) (NotDetected) Coronavirus 229E (PCR) (NotDetected) SARS-CoV-2 (PCR) (NotDetected) Coronavirus NL63 (PCR) (NotDetected) Human Metapneumovir PCR (NotDetected) Influenza Type A (PCR) (NotDetected) Influenza Type B (PCR) (NotDetected) M. pneumoniae (PCR) (NotDetected) Parainfluenza 1 (PCR) (NotDetected) Parainfluenza 2 (PCR) (NotDetected) Parainfluenza 3 (PCR) (NotDetected) Parainfluenza 4 (PCR) (NotDetected) RSV (PCR) (NotDetected) Entero/Rhino (PCR) (NotDetected) Administered Medications Azithromycin 500 mg/ Dextrose 255 mls @ 125 mls/hr IV ONE ONE Stop: 05/21/23 19:18 Last Admin: 05/21/23 18:34 Dose: 125 mls/hr Documented By: MAURO Sodium Chloride (Nss) 500 mls @ 999 mls/hr IV .Q31M ONE Stop: 05/21/23 18:54 Last Admin: 05/21/23 18:34 Dose: 999 mls/hr Documented By: MAURO Discontinued Medications Ceftriaxone Sodium 1,000 mg/ (Dextrose) 50 mls @ 100 mls/hr IV NOW STA Stop: 05/21/23 17:45 Last Admin: 05/21/23 18:08 Dose: 100 mls/hr Documented By: MAURO Ioversol (Optiray 320 125ml) 120 ml IV ONCE ONE Stop: 05/21/23 17:59 Last Admin: 05/21/23 17:58 Dose: 120 ml Documented By: EAB Imaging Data Radiologist's Impression: Chest X-Ray 05/21/23 16:12 XR chest 1V portable CLINICAL HISTORY: Dyspnea TECHNIQUE: Single frontal radiograph of the chest was obtained. Comparison: Comparison is made to chest radiograph 03/09/2023 FINDINGS: No lines and tubes are seen. The cardiomediastinal silhouette is normal. The lungs are clear. No evidence of pleural effusion or pneumothorax. IMPRESSION: No acute abnormalities and in particular no radiographic evidence of pneumonia. ACT 112: Negative or not required by law. Electronically signed by: Sekou Allen M.D. 05/21/2023 4:44 PM Chest CTA 05/21/23 17:19 CT angio chest PE protocol CLINICAL HISTORY: hypoxia, subjective fevers, eval for PE vs PNA TECHNIQUE: Multidetector row helical CT of the chest was performed with angiographic protocol. Coronal and sagittal reformations were obtained. Coronal and sagittal MIPS were obtained from the axial data set and were submitted for review. Automated dose lowering techniques and/or adjustment according to patient size were utilized for this exam. CT DOSE: 970.13 mGy.cm Comparison: None available at the time of this dictation. FINDINGS: Lungs and pleura: There is a 4 mm nodule in the left lower lobe (series 4 image 110) and a 4 mm nodule in the left lower lobe (image 101). Groundglass opacities are seen in the dependent lung with associated atelectasis. Heart and pericardium: Heart size is normal. No pericardial effusion. Vessels: Moderate atherosclerotic changes in the aorta and coronary arteries. Mediastinum and sapna: Enlarged mediastinal lymph nodes measure up to 12 mm. Right hilar nodes measure up to 15 mm. Chest wall and lower neck: Unremarkable. Abdomen: Hepatic cysts are seen. Bones: Degenerative changes in the thoracic spine. IMPRESSION: 1. No pulmonary embolus is seen. 2. Pneumonia is seen with reactive lymphadenopathy. 3. Pulmonary nodules are unchanged as above. ACT 112: Negative or not required by law. Electronically signed by: Sekou Allen M.D. 05/21/2023 6:18 PM Discharge Plan Visit Data Chief Complaint: Shortness of Breath/Dyspnea Stated Complaint: FEVER, OXYGEN AT 92, COLD SWEATS, SOB ED Provider: Bialas,Yayo A. Discharge Problem: Hypoxia Forms Stand Alone Forms: My [facility] [employer] Prescriptions Prescriptions: No Action albuterol sulfate 90 mcg/actuation HFA aerosol inhaler 1 puff INHALATION Q4H PRN (Reason: Shortness Of Breath) losartan-hydrochlorothiazide 100-12.5 mg tablet 1 tab PO DAILY Referrals Referrals: Julian Carlos DO [Primary Care Provider] -
--- NOTE | 2023-05-21 16:45 | XRay Report ---
XR chest 1V portable CLINICAL HISTORY: Dyspnea TECHNIQUE: Single frontal radiograph of the chest was obtained. Comparison: Comparison is made to chest radiograph 03/09/2023 FINDINGS: No lines and tubes are seen. The cardiomediastinal silhouette is normal. The lungs are clear. No evid ence of pleural effusion or pneumothorax. IMPRESSION: No acute abnormalities and in particular no radiographic evidence of pneumonia. ACT 112: Negative or not required by law. Electronically signed by: Sekou Allen M.D. 05/21/2023 4:44 PM
[2023-05-21 16:57] LABS: Base Excess VBG 2.8 mEq/L; HCO3 VBG 26 mmol/L; Oxygen Saturation VBG 61.9 %; PCO2 VBG 35 mmHg (38-50); PO2 VBG 34 mmHg; pH VBG 7.48 (7.36-7.41)
[2023-05-21 17:11] LABS: Basophils # (auto) 0.09 K/uL (0-0.2); Basophils % (auto) 0.5 %; Eosinophils # (auto) 0.12 K/uL (0-0.50); Eosinophils % (auto) 0.7 %; Hematocrit (blood only) 40.2 % (42.0-52.0); Hemoglobin 14.2 g/dl (14.0-18.0); Immature Granulocytes # (auto) 0.16 K/uL (0.01-0.20); Immature Granulocytes % (auto) 0.9 %; Lymphocytes # (auto) 1.15 K/uL (1.2-3.4); Lymphocytes % (auto) 6.8 %; Mean Corpuscular Hemoglobin 31.4 pg (25.0-34.0); Mean Corpuscular Hgb Conc 35.3 g/dL (32.0-36.0); Mean Corpuscular Volume 88.9 fL (80.0-100.0); Mean Platelet Volume 9.8 fL (9.4-12.4); Monocytes % (auto) 4.1 %; Neutrophils # (auto) 14.69 K/uL (1.40-6.50); Platelet Count 229 K/uL (130-400); RDW Coefficient of Variation 13.1 % (11.5-14.5); RDW Standard Deviation 42.5 fL (36.4-46.3); Red Blood Count 4.52 M/uL (4.70-6.10); White Blood Count 16.91 K/ul (4.8-10.8)
[2023-05-21] MEDS ORDERED: cefTRIAXone SODIUM 1,000 MG in DEXTROSE 5% AD-VAN 50 ML IV STA (17:16)
[2023-05-21] MEDS ORDERED: AZITHROMYCIN 500 MG in DEXTROSE 5% 250 ML IV ONE (17:16)
[2023-05-21 17:18] LABS: Albumin Globulin Ratio 0.9 (0.9-2); Albumin Level 3.7 gm/dl (3.4-5.0); BUN Creatinine Ratio 21.6 (10-20); Bilirubin,Total 1.3 mg/dl (0.2-1.0); Calcium 9.5 mg/dl (8.6-10.3); Creatinine Clr Calc Pharmacy 84.1 ml/min; Est GFR (African American) 82.6 ml/min; Est GFR (Non-African American) 71.3 ml/min; Globulin 4.1 gm/dl (2.5-4.0); Potassium 3.6 mmol/L (3.5-5.1); Total Protein 7.8 gm/dl (6.0-8.3)
[2023-05-21 17:26] LABS: Troponin I High Sensitivity 14.1 pg/ml (0-20)
[2023-05-21 17:27] LABS: Adenovirus PCR Not Detected (NotDetected); Bordetella parapertussis PCR Not Detected (NotDetected); Bordetella pertussis PCR Not Detected (NotDetected); Chlamydia pneumoniae PCR Not Detected (NotDetected); Coronavirus 229E PCR Not Detected (NotDetected); Coronavirus CoV-2 (COVID19)PCR Not Detected (NotDetected); Coronavirus HKU1 PCR Not Detected (NotDetected); Coronavirus NL63 PCR Not Detected (NotDetected); Coronavirus OC43PCR Not Detected (NotDetected); Human Metapneumovirus PCR Not Detected (NotDetected); Influenza A PCR Not Detected (NotDetected); Influenza B PCR Not Detected (NotDetected); Mycoplasma pneumoniae PCR Not Detected (NotDetected); Parainfluenza Virus 1 PCR Not Detected (NotDetected); Parainfluenza Virus 2 PCR Not Detected (NotDetected); Parainfluenza Virus 3 PCR Not Detected (NotDetected); Parainfluenza Virus 4 PCR Not Detected (NotDetected); Respiratory Syncytial VirusPCR Not Detected (NotDetected); Rhinovirus/Enterovirus PCR Not Detected (NotDetected)
[2023-05-21 17:29] LABS: Prothrombin Time 11.4 Seconds (9.0-12.0)
[2023-05-21 17:40] LABS: Lyme Ab IgG w/WB Rflx Negative (Negative); Lyme Ab IgM w/WB Rflx Negative (Negative)
[2023-05-21] MEDS ORDERED: OPTIRAY 320 125ml IV ONE (17:58)
[2023-05-21 18:19] LABS: Appearance Urine Clear (Clear); Bilirubin Urine Negative (Negative); Blood Urine Negative (Negative); Color Urine Yellow; Glucose Urine UA Negative (Negative); Ketones Urine Negative (Negative); Leukocyte Esterase Urine Negative (Negative); Nitrite Urine Negative (Negative); Protein Urine Negative (Negative); Specific Gravity Urine 1.014 (1.000-1.030); Urobilinogen Urine Negative (Negative)
--- NOTE | 2023-05-21 18:20 | CT Scan Report ---
CT angio chest PE protocol CLINICAL HISTORY: hypoxia, subjective fevers, eval for PE vs PNA TECHNIQUE: Multidetector row helical CT of the chest was performed with angiographic protocol. Weber l and sagittal reformations were obtained. Coronal and sagittal MIPS were obtained from the axial rome a set and were submitted for review. Automated dose lowering techniques and/or adjustment according to patient size were utilized for this exam. CT DOSE: 970.13 mGy.cm Comparison: None available at the time of this dictation. FINDINGS: Lungs and pleura: There is a 4 mm nodule in the left lower lobe (series 4 image 110) and a 4 mm nodul e in the left lower lobe (image 101). Groundglass opacities are seen in the dependent lung with assoc iated atelectasis. Heart and pericardium: Heart size is normal. No pericardial effusion. Vessels: Moderate atherosclerotic changes in the aorta and coronary arteries. Mediastinum and sapna: Enlarged mediastinal lymph nodes measure up to 12 mm. Right hilar nodes measure up to 15 mm. Chest wall and lower neck: Unremarkable. Abdomen: Hepatic cysts are seen. Bones: Degenerative changes in the thoracic spine. IMPRESSION: 1. No pulmonary embolus is seen. 2. Pneumonia is seen with reactive lymphadenopathy. 3. Pulmonary nodules are unchanged as above. ACT 112: Negative or not required by law. Electronically signed by: Sekou Allen M.D. 05/21/2023 6:18 PM
[2023-05-21] MEDS ORDERED: SODIUM CHLORIDE 0.9% 500 ML IV ONE (18:24)
--- NOTE | 2023-05-21 18:47 | History & Physical Report ---
Date of Service May 21, 2023 Assessment & Plan (1) Pneumonia: Plan: CAP - No history of immune compromise, but a second episode of bibasilar pneumonia - CTA: No pulmonary embolus noted. Groundglass opacity dependently with associated atelectasis, pneumonia suspected with reactive lymphadenopathy - New leukocytosis of 16.9 VBG 7.4 8/35/34/26 consistent with tachypnea/respiratory alkalosis Creatinine at baseline, 1.11 on admission Procalcitonin pending Sputum culture pending BioFire negative EKG: Normal sinus rhythm, QTc 438, no territorial findings of ischemia. Rate 89 bpm Received Rocephin/azithromycin on admission Given recent hospitalization and increased risk for hap for pneumonia will obtain sputum culture and cover with cefepime/azithromycin at this time Patient is concerned due to 2 episodes of relatively limiting pneumonia witho ut known underlying lung compromise/immune deficiency. CRP, ESR, HIV testing ordered as initial screen Hypertension Continue losartanhydrochlorothiazide. Take evenings. Took 05/20 DVT prophylaxis: Lovenox Diet: Regular Disposition: [facility] CODE STATUS: Full code (2) Hypoxia: (3) Hypertension: History of Present Illness Primary Care Provider: Julian Carlos DO Everette is a 62-year-old male with a past medical history of sepsis due to pneumonia 03/09/2023, and hypertension presents to the emergency department with fever/chills over the last week and shortness of breath with exertion. Last week has felt intermittently fatigued and washed out. Has had the same shortness of breath, generalized weakness, and 'joint pain like I'm fighting an infection.' Cough productive for a small amount of yellow mucous/sputum. SpO2 mid 90s at home. Feels the same as his last PNA. Night sweats soaking the bed just since last time. DIdn't feel well, intermittent shaking chills. None at bedside, have had this on and off today. Tried a few ibuprofen, did not help. Has not noticed any other symptoms in these. Denies chest pain, chest pressure. Denies history of immune compromise. Has not been on muse compromising medications. No family history of autoimmune disease/rheumatological disease. Medical History: Reviewed Medications: Reviewed Surgical History: Reviewed Family history: Reviewed Allergies: Reviewed Social History: No cigarette. EtoH- drinks 1-2 drinks per day liquor. No history of shakes/withdrawal. Code Status: Full Code Allergies Allergy/AdvReac Type Severity Reaction Status Date / Time lisinopril AdvReac Mild Cough Unverified 03/09/23 09:26 Home Medications Medication Instructions Recorded Confirmed Type albuterol sulfate 90 mcg/actuation 1 puff inhalation Q4H PRN 03/09/23 05/21/23 History aerosol inhaler Shortness Of Breath losartan 100 1 tab PO DAILY 03/09/23 05/21/23 History mg-hydrochlorothiazide 12.5 mg tablet Past Med/Surg History Medical History Hypertension Sensorineural hearing loss of both ears Tinnitus, bilateral Surgical History No significant past surgical history Family History Father COPD (chronic obstructive pulmonary disease) Mother Dementia Social History Smoking Status: Never smoker Second Hand Exposure: No; Do You Dip or Chew Tobacco: No; Hx Alcohol Use: Yes Alcohol type: hard liquor Hx Substance Use: No Preferred Language: Maori Communication Ability: Effective Dressmaker Helper Required: No Beliefs That Will Affect Care: None Current Living Situation: Alone Feels Safe at Home: Yes Assistive Devices: None Review of Systems Review of Systems: All systems reviewed & are unremarkable except as noted in Subjective Physical Exam Physical Exam: General: A&Ox3. NAD. Cooperative. HEENT: Atraumatic, normocephalic. Pulm: Bibasilar crackles without wheezing symmetrical chest rise. No increased work of breathing. No respiratory distress. Cardiac: RRR, -mrg. Radial pulses intact and symmetrical. Abdominal: Nontender, nondistended, soft. BS present. Extremities: Warm, dry Results & Data Results & Data Vital Signs (Past 12 Hours) Vital Signs Temp Pulse Pulse Resp BP BP Pulse Ox 05/21/23 17:30 86 28 H 144/101 H 93 05/21/23 17:00 86 26 H 139/89 90 05/21/23 17:16 94 05/21/23 17:15 88 28 H 88 L 05/21/23 16:30 91 H 30 H 93 05/21/23 16:15 95 H 26 H 92 05/21/23 16:47 93 05/21/23 16:47 05/21/23 16:15 92 H 05/21/23 16:10 92 H 19 140/78 93 05/21/23 16:04 36.4 C L 96 H 18 121/84 94 O2 Del Method O2 Flow Rate 05/21/23 17:30 05/21/23 17:00 05/21/23 17:16 Nasal Cannula 3 05/21/23 17:15 Room Air 05/21/23 16:30 05/21/23 16:15 05/21/23 16:47 Room Air 05/21/23 16:47 Room Air 05/21/23 16:15 05/21/23 16:10 Room Air 05/21/23 16:04 Room Air PG Care Time/CCT Total # of Minutes Spent Total Time Spent with Patient: Total time spent is greater than 50% in coordination of care (as documented) at patient's floor/unit and/or counseling patient: Coding Level of Care Code 79264 INT INP/OBS CARE 2/55MIN Diagnoses Pneumonia J18.9 Hypoxia R09.02 Hypertension I10
[2023-05-21] MEDS ORDERED: ENOXAPARIN INJ 40 MG/0.4 ML SYR SQ SCH (21:00)
[2023-05-21] MEDS ORDERED: ALBUTEROL HFA 8 GM INHALER INH PRN (21:37)
[2023-05-21] MEDS ORDERED: ACETAMINOPHEN 325 MG TAB PO PRN (21:37)
[2023-05-21 22:00] LABS: C Reactive Protein 9.16 mg/dl (0-0.5); Immunoglobulin A 98.9 mg/dl (70-400); Immunoglobulin G 1948.3 mg/dl (635-1741)
[2023-05-21] MEDS: CEFEPIME 2,000 MG in SYRINGE 0 ML IV SCH (22:17)
[2023-05-22] MEDS: CEFEPIME 2,000 MG in SYRINGE 0 ML IV SCH ×2 (06:05→14:21)
--- NOTE | 2023-05-22 07:58 | Hospitalist Progress Note ---
Date of Service May 22, 2023 Assessment & Plan (1) Pneumonia: Plan: CAP - No history of immune compromise, but a second episode of bibasilar pneumonia - CTA: No pulmonary embolus noted. Groundglass opacity dependently with associated atelectasis, pneumonia suspected with reactive lymphadenopathy - New leukocytosis of 16.9 VBG 7.4 8/35/34/26 consistent with tachypnea/respiratory alkalosis Creatinine at baseline, 1.11 on admission Procalcitonin pending Sputum culture pending BioFire negative EKG: Normal sinus rhythm, QTc 438, no territorial findings of ischemia. Rate 89 bpm Received Rocephin/azithromycin on admission Given recent hospitalization and increased risk for hap for pneumonia will obtain sputum culture and cover with cefepime/azithromycin at this time Patient is concerned due to 2 episodes of relatively limiting pneumonia wi thout known underlying lung compromise/immune deficiency. CRP, ESR, HIV testing ordered as initial screen Hypertension Continue losartanhydrochlorothiazide. Take evenings. Took 05/20 DVT prophylaxis: Lovenox Diet: Regular Disposition: [facility] CODE STATUS: Full code (2) Hypoxia: (3) Hypertension: Admission and Anticipated Discharge Date Admission Date: May 21, 2023 Physical Exam Physical Exam: General: A&Ox3. NAD. Cooperative. HEENT: Atraumatic, normocephalic. Pulm: Bibasilar crackles without wheezing symmetrical chest rise. No increased work of breathing. No respiratory distress. Cardiac: RRR, -mrg. Radial pulses intact and symmetrical. Abdominal: Nontender, nondistended, soft. BS present. Extremities: Warm, dry Results & Data Results & Data Vital Signs (Past 12 Hours) Vital Signs Temp Pulse Pulse Pulse Resp BP BP 05/21/23 21:41 05/21/23 21:37 36.5 C 79 18 129/81 05/21/23 20:30 77 05/21/23 21:00 85 32 H 05/21/23 20:30 78 28 H 05/21/23 20:00 79 29 H 129/91 05/21/23 20:47 36.9 C 84 20 129/88 Pulse Ox O2 Del Method O2 Flow Rate 05/21/23 21:41 Nasal Cannula 2 05/21/23 21:37 94 Nasal Cannula 2 05/21/23 20:30 05/21/23 21:00 96 05/21/23 20:30 93 05/21/23 20:00 95 05/21/23 20:47 94 Nasal Cannula 2
[2023-05-22] MEDS ORDERED: LOSARTAN POTASSIUM 50 MG TAB PO SCH (09:00)
[2023-05-22] MEDS ORDERED: hydroCHLOROthiazide 25 MG TAB PO SCH (09:00)
[2023-05-22] MEDS ORDERED: AZITHROMYCIN 250 MG TAB PO SCH (09:00)
--- NOTE | 2023-05-22 14:10 | Discharge Summary ---
Date of Service May 22, 2023 Admission HPI Per Admitting Provider Everette is a 62-year-old male with a past medical history of sepsis due to pneumonia 03/09/2023, and hypertension presents to the emergency department with fever/chills over the last week and shortness of breath with exertion. Last week has felt intermittently fatigued and washed out. Has had the same shortness of breath, generalized weakness, and 'joint pain like I'm fighting an infection.' Cough productive for a small amount of yellow mucous/sputum. SpO2 mid 90s at home. Feels the same as his last PNA. Night sweats soaking the bed just since last time. DIdn't feel well, intermittent shaking chills. None at bedside, have had this on and off today. Tried a few ibuprofen, did not help. Has not noticed any other symptoms in these. Denies chest pain, chest pressure. Denies history of immune compromise. Has not been on muse compromising medications. No family history of autoimmune disease/rheumatological disease. Medical History: Reviewed Medications: Reviewed Surgical History: Reviewed Family history: Reviewed Allergies: Reviewed Social History: No cigarette. EtoH- drinks 1-2 drinks per day liquor. No history of shakes/withdrawal. Code Status: Full Code Admission Exam Per Admitting Provider General: A&Ox3. NAD. Cooperative. HEENT: Atraumatic, normocephalic. Pulm: Bibasilar crackles without wheezing symmetrical chest rise. No increased work of breathing. No respiratory distress. Cardiac: RRR, -mrg. Radial pulses intact and symmetrical. Abdominal: Nontender, nondistended, soft. BS present. Extremities: Warm, dry Principal Diagnosis pneumonia Discharge Exam See attending attestation Discharge Data Allergies Allergy/AdvReac Type Severity Reaction Status Date / Time lisinopril AdvReac Mild Cough Unverified 03/09/23 09:26 Consultations 05/21/23 18:24 ED Decision to Admit Stat Ordered Studies Chest X-Ray 05/21/23 16:12 XR chest 1V portable CLINICAL HISTORY: Dyspnea TECHNIQUE: Single frontal radiograph of the chest was obtained. Comparison: Comparison is made to chest radiograph 03/09/2023 FINDINGS: No lines and tubes are seen. The cardiomediastinal silhouette is normal. The lungs are clear. No evidence of pleural effusion or pneumothorax. IMPRESSION: No acute abnormalities and in particular no radiographic evidence of pneumonia. Chest CTA 05/21/23 17:19 CT angio chest PE protocol CLINICAL HISTORY: hypoxia, subjective fevers, eval for PE vs PNA TECHNIQUE: Multidetector row helical CT of the chest was performed with [facility] ographic protocol. Coronal and sagittal reformations were obtained. Coronal and sagittal MIPS were obtained from the axial data set and were submitted for review. Automated dose lowering techniques and/or adjustment according to patient size were utilized for this exam. CT DOSE: 970.13 mGy.cm Comparison: None available at the time of this dictation. FINDINGS: Lungs and pleura: There is a 4 mm nodule in the left lower lobe (series 4 image 110) and a 4 mm nodule in the left lower lobe (image 101). Groundglass opacities are seen in the dependent lung with associated atelectasis. Heart and pericardium: Heart size is normal. No pericardial effusion. Vessels: Moderate atherosclerotic changes in the aorta and coronary arteries. Mediastinum and sapna: Enlarged mediastinal lymph nodes measure up to 12 mm. Right hilar nodes measure up to 15 mm. Chest wall and lower neck: Unremarkable. Abdomen: Hepatic cysts are seen. Bones: Degenerative changes in the thoracic spine. IMPRESSION: 1. No pulmonary embolus is seen. 2. Pneumonia is seen with reactive lymphadenopathy. 3. Pulmonary nodules are unchanged as above. 05/21/23 16:35 05/21/23 16:35 Hospital Course (1) Pneumonia: CAP Second episode of bibasilar pneumonia. CTAB did not show PE, groundglass opacity dependently with associated atelectasis, pneumonia suspected with reactive lymphadenopathy. Leukocytosis 16.9. BioFire neg. Elevated inflammatory markers. Started on cefepime and azithromycin. Initially with 2L oxygen requirement. Now satting well on RA. No history of immunocompromise, but this is his second episode of bibasilar pneumonia. HIV testing pending. Will discharge with azithromycin and Augmentin. Hypertension Continue losartanhydrochlorothiazide. DVT prophylaxis: Lovenox Diet: Regular Disposition: [facility] CODE STATUS: Full code (2) Hypoxia: (3) Hypertension: Total Time Total Time Spent Total Time Spent (In Minutes): see attending attestation Discharge Plan Discharge Items Patient Disposition: Home - Self-Care Reason For Visit: PNA Discharge Diagnosis: pna Activity: Per Instructions section Non-emergency contact: Primary Care Provider Call non-emergency contact if: you have any medication questions and your temperature is above 101.5 Follow-up/Referrals: Julian Carlos, [Primary Care Provider] - Diet: Heart Healthy Addtl Attending Provider Instructions: You were admitted to the hospital for pneumonia. You were treated with supplemental oxygen and antibiotics. We did order a blood culture and sputum culture. Those have not yet resulted. Please have your primary care doctor follow up on those. A discharge summary will be sent to your primary care physician to ensure continuity of care. Please bring this discharge summary with you to your next office appointment so that your provider can review it at that time. Follow-up appointments: We have requested a follow-up appointment with your primary care physician within one week of discharge. Please call their office if you do not hear from them. Keep all your follow-up appointments as already scheduled. If you cannot make an appointment, notify your provider. Medications: Your medication list has been reviewed and reconciled upon discharge to ensure accuracy and continuity of care. An updated list of all your medications is included with your hospital discharge paperwork. Please review this list closely, and make note of any changes. We sent a new medication called Azithromycin to your pharmacy. Take 250 mg every day for the next three days. We sent a new medication called Augmentin to your pharmacy. Take 875 mg twice daily for the next three days. Last dose will be 05/25 If you have any issues filling these prescriptions, please call [phone] and ask to leave a message for Dr. Hines Take your medications as instructed; do not skip a dose of your medicines. Make sure all of your doctors know every medicine you are taking (including kvin-[id number]-pmsyadf medicines, vitamins, and supplements). Call your primary care provider before taking any new medicines (including over- the- counter medicines, vitamins, and supplements), because some of these may interact with your current medications, or may make your symptoms worse. Tell your primary care provider if you cannot afford your medications. CONTACT YOUR PRIMARY CARE PROVIDER if you experience any of the following: shortness of breathing/difficulty speaking in full sentences fevers or chills Difficulty following your treatment plan, or difficulty taking medications CALL 911 OR GO TO THE EMERGENCY DEPARTMENT if you experience any of the following: Sudden, severe abdominal pain or nausea/vomiting Severe chest pain, or chest pain that radiates (moves) to your jaw or arm Sudden, severe shortness of breath or difficulty breathing Thank you for allowing us to participate in your care Pending Studies at Discharge: Yes Studies:: sputum and blood cultures HIV Stand-Alone Forms: [facility], Smoking Cessation Medications and DC Order Prescriptions: New azithromycin 250 mg Tablet 250 mg PO QAM Qty: 3 0RF amoxicillin-pot clavulanate 875-125 mg tablet 1 tab PO BID Qty: 7 0RF Continued albuterol sulfate 90 mcg/actuation HFA aerosol inhaler 1 puff INHALATION Q4H PRN (Reason: Shortness Of Breath) losartan-hydrochlorothiazide 100-12.5 mg tablet 1 tab PO DAILY Discharge Orders: Discharge Order (Routine); Ordered 05/22/23 Ordered By: Alycia Hines Admission Data Admit Date/Time: 05/21/23 20:18 Attending Provider: Toñito Hollis Admit Provider: Vitor Salmeron Primary Care Provider: Julian Carlos Other Providers: Vitor Salmeron Other Interventions: Discharge Summary Assessment (RN) Last Done: 05/22/23 14:07 Supervising Physician Co-Signing Physician Notes I personally examined the patient and verified all [place]amo points of history and exam, discussed case, and agree with decision making with Dr Hines feels better and would like to go home discussed pneumonia recovery/etc extensively vitals noted nad heent nc at mmm breathing unlabored no accessory muscles good effort skin no rashes no pallor or icterus CAP/sepsis POA - improved. safe/stable for home. f/u labs were not sent this AM - but appearing improved/safe/stable for dc --> so repeat labs as outpt otherwise as above Resident Activity Tracking Resident Involvement: Resident Care Provided Care Provided: Adult Hospital Medicine
--- NOTE | 2023-05-22 19:06 | Billing Data ---
Date of Service May 22, 2023 Coding Level of Care Code 82771 IN/OBS DISCH 30 MIN/LESS
[2023-05-25 13:48] LABS: Babesia microti DNA Not Detected (Not Detected)
== END 2023-05-22 14:30 | disposition home or self-care (01) | DRG 194 ==
LOC: ED 15:57 → INTOOBSV 20:18 → SUATTDRO 20:18 → 3N 20:18

== ENCOUNTER 2023-09-27 14:20 | Inpatient (IN) ==
--- NOTE | 2023-09-27 14:39 | ED Triage Note ---
Date of Service September 27, 2023 History of Present Illness This patient was briefly evaluated while in triage. An abbreviated physical exam was performed. This patient is a 62-year-old Male who presents to the ED for evaluation of shortness of breath. He has had some cough, fevers and achiness. He states he has had cold/flu like symptoms for the past 1-2 weeks. He recently traveled to and from [place]. Physical Exam VITALS: Vitals are noted on the nurse's note and reviewed by myself. GENERAL: This is a 62-year-old male, in no acute distress, well-developed well- nourished. SKIN: The skin was without rashes. HEART: Regular rate and rhythm without murmurs gallops or rubs. LUNGS: Clear to auscultation bilaterally without wheezes, rales or rhonchi. NEURO: Patient was alert and oriented to person place and time. Initial orders for labs and / or imaging were placed and patient was placed in the waiting area until a bed is available. Please see further documentation for the full ED course.
--- NOTE | 2023-09-27 15:15 | XRay Report ---
XR chest 1V not portable CLINICAL HISTORY: Dyspnea TECHNIQUE: Single frontal radiograph of the chest was obtained. Comparison: Comparison is made to chest radiograph 05/21/2023 FINDINGS: No lines and tubes are seen. The cardiomediastinal silhouette is normal. The lungs are clear. No evid ence of pleural effusion or pneumothorax. IMPRESSION: No acute chest disease. ACT 112: Negative or not required by law. Electronically signed by: Sekou Allen M.D. 09/27/2023 3:14 PM
[2023-09-27 15:37] LABS: Albumin Level 3.8 gm/dl (3.4-5.0); Bilirubin,Total 1.5 mg/dl (0.2-1.0); Calcium 9.5 mg/dl (8.6-10.3); Creatinine Clr Calc Pharmacy 76.2 ml/min; Est GFR (African American) 71.6 ml/min; Est GFR (Non-African American) 61.8 ml/min; Globulin 3.9 gm/dl (2.5-4.0); Potassium 4.1 mmol/L (3.5-5.1); Total Protein 7.7 gm/dl (6.0-8.3)
[2023-09-27 15:45] LABS: Troponin I High Sensitivity 10.3 pg/ml (0-20)
[2023-09-27 15:53] LABS: D Dimer 2100 ug/L FEU (0-500)
[2023-09-27 15:57] LABS: Basophils # (auto) 0.03 K/uL (0.00-0.20); Basophils % (auto) 0.1 %; Hematocrit (blood only) 41.7 % (42.0-52.0); Immature Granulocytes # (auto) 0.28 K/uL (0.01-0.20); Immature Granulocytes % (auto) 0.7 %; Lymphocytes # (auto) 0.95 K/uL (1.20-3.40); Lymphocytes % (auto) 2.5 %; Mean Corpuscular Hemoglobin 30.8 pg (25.0-34.0); Mean Corpuscular Hgb Conc 33.6 g/dL (32.0-36.0); Mean Corpuscular Volume 91.6 fL (80.0-100.0); Mean Platelet Volume 9.3 fL (9.4-12.4); Monocytes # (auto) 0.49 K/uL (0.11-0.59); Monocytes % (auto) 1.3 %; Neutrophils # (auto) 36.59 K/uL (1.40-6.50); Neutrophils % (auto) 95.4 %; Platelet Count 298 K/uL (130-400); Polychromasia 1+; RDW Coefficient of Variation 13.5 % (11.5-14.5); RDW Standard Deviation 46.1 fL (36.4-46.3); Red Blood Count 4.55 M/uL (4.70-6.10); Toxic Granulation 1+; Toxic Vacuolation 1+
[2023-09-27 16:01] LABS: White Blood Count 38.34 K/ul (4.8-10.8)
[2023-09-27] MEDS ORDERED: SODIUM CHLORIDE 0.9% 1,000 ML IV ONE (16:20)
[2023-09-27] MEDS ORDERED: cefTRIAXone SODIUM 2,000 MG in DEXTROSE 5 % MINI-B 50 ML IV STA (16:20)
--- NOTE | 2023-09-27 16:33 | Emergency Department Note ---
Impression & Plan Pneumonia ED Provider Note NAME: JACQUELINE MANZO AGE: 62 SEX: M : 1960 ARRIVES VIA: Walk-In INFORMANT: Patient, ED PROVIDER(S): Baljinder Titus MD CHIEF COMPLAINT: Shortness of breath, cough HPI: This is a 62-year-old male presenting for 1 week history of shortness of breath, cough and intermittent fevers. Patient states that last week he began having symptoms of a cold. He thought this was a usual upper respiratory infection and continued his usual activities. He notes that he had a fever up to 101.7 at some point. Recently has fevers as high as 100.7. He notes that he also drove to [place] over the past 1 week and came back here. He notes that he drove between 5 and 6 hours each leg and had 4 different legs of the trip. He notes no chest pain at this time, no pleurisy, history of blood clots, leg swelling or leg pain. He notes he had pneumonia in the past feels somewhat sim ilar but actually feels less short of breath today despite having low oxygen levels as per his Apple Watch. ROS: See above HPI for pertinent positives & negatives. A total of 10 systems reviewed and were otherwise negative. PAST MEDICAL HISTORY: See Below PAST SURGICAL HISTORY: See Below FAMILY HISTORY: See Below SOCIAL HISTORY: See Below HOME MEDICATIONS: See Below ALLERGIES: See Below VITALS: See Below PHYSICAL EXAMINATION: General: resting comfortably in no acute distress Head: Normocephalic and atraumatic Eyes: Normal inspection, extraocular muscles intact, no conjunctival pallor Ear, nose, throat: Normal external exam Neck: Normal range of motion Respiratory: Patient is in no respiratory distress, lungs clear to auscultation bilaterally Cardiovascular: RRR without murmur appreciated GI: soft, nontender, no guarding or rebound Extremities: pulses intact with good cap refills, no LE pitting edema or calf tenderness Neuro: The patient awake and alert, appropriately conversive,no focal decifits Skin: Warm, dry, and intact MEDICAL DECISION MAKING: This is a 62-year-old male presenting for any history of shortness of breath, cough and intermittent fevers. Patient is hypoxic [facility] Initially he was slightly tachycardic to 101.. Possibly septic with normal blood pressures. Respirations are between 18 and 25. Otherwise patient is have a significant leukocytosis above 38. Blood cultures will be sent at this time. We will treat empirically with ceftriaxone for the significantly leukocytosis with history concerning for pneumonia. Chest Xray independently interpreted by me showing no pneumothorax, focal opacity, or pleural effusions. Previous records are reviewed by me including discharge summaries which are the patient being admitted here twice for pneumonias in the past. CTA ordered to help rule out pulm embolism, does show significant bilateral pulmonary opacities consistent with pneumonia. Patient require admission for hypoxia, pneumonia. Discussed with hospitalist about neck steps including admission. Decision made to switch antibiotics to ceftriaxone and vancomycin for now for now third pneumonia concerning for extended spectrum. Triage Nursing notes reviewed. Prior medical records reviewed Vital Signs: reviewed and remarkable for no significant abnormalities Differential diagnosis: Pneumonia, PE, ACS ER treatment provided: See below Diagnostics interpreted by me: ECG: ECG independently interpreted by me with sinus tachycardia rate of 105, normal axis, normal WA, normal QRS, normal QTc, no ST segment elevations consistent with STEMI criteria Cardiac Monitoring: An order was placed for continuous cardiac monitoring. The monitor shows a rate of 87 with sinus rhythm. Laboratory studies: As stated above and show below. Imaging studies: See below. Radiographic imaging was reviewed by myself Consultation(s): None Critical Care Note: I have personally spent 42 minutes of critical care time in the direct management of this patient. This includes bedside care, interpretat ion of diagnostic studies, and testing, discussion with consultants, patient, and family members, and other required patient management activities. This 42 minutes is in excess of all separately billable procedures. Past Med/Surg History Medical History Hypertension Sensorineural hearing loss of both ears Tinnitus, bilateral Surgical History No significant past surgical history Family History Father COPD (chronic obstructive pulmonary disease) Mother Dementia Social History Smoking Status: Never smoker Second Hand Exposure: No; Do You Dip or Chew Tobacco: No; Hx Alcohol Use: Yes Alcohol type: hard liquor Hx Substance Use: No Preferred Language: Luxembourger Communication Ability: Effective Silk Hanger Required: No Beliefs That Will Affect Care: None Current Living Situation: Alone Feels Safe at Home: Yes Assistive Devices: Glasses Allergies Allergies Allergy/AdvReac Type Severity Reaction Status Date / Time lisinopril AdvReac Intermediate Cough Verified 09/27/23 17:37 Home Meds Home Medications Medication Instructions Recorded Confirmed losartan 100 1 tab PO HS 03/09/23 09/27/23 mg-hydrochlorothiazide 12.5 mg tablet loratadine 10 mg tablet (Claritin) 10 mg PO HS 09/27/23 09/27/23 Results & Data (ED) Vital Signs Vital Signs - 24 hr 09/27/23 14:38 Temperature 36.7 C Temperature Source Skin Pulse Rate 101 H Respiratory Rate 18 Blood Pressure 130/72 Blood Pressure Mean 91 Pulse Oximetry 92 Oxygen Delivery Method Room Air Sepsis Recent Fever Within 48 Hours No Sepsis New/Unexplained Change in Mental Status No Sepsis Action Taken by Nursing No Action Required Laboratory Data 09/27/23 14:45 09/27/23 14:45 Lab Results 09/27/23 09/27/23 09/27/23 Range/Units 14:45 14:45 14:45 WBC 38.34 H* (4.8-10.8) K/ul RBC 4.55 L (4.70-6.10) M/uL Hgb 14.0 (14.0-18.0) g/dl Hct 41.7 L (42.0-52.0) % MCV 91.6 (80.0-100.0) fL MCH 30.8 (25.0-34.0) pg MCHC 33.6 (32.0-36.0) g/dL RDW Std Deviation 46.1 (36.4-46.3) fL RDW Coeff of Rajesh 13.5 (11.5-14.5) % Plt Count 298 (130-400) K/uL MPV 9.3 L (9.4-12.4) fL Immature Gran % (Auto) 0.7 % Neut % (Auto) 95.4 % Lymph % (Auto) 2.5 % Candler % (Auto) 1.3 % Eos % (Auto) 0.0 % Baso % (Auto) 0.1 % Neut # (Auto) 36.59 H (1.40-6.50) K/uL Lymph # (Auto) 0.95 L (1.20-3.40) K/uL Candler # (Auto) 0.49 (0.11-0.59) K/uL Eos # (Auto) 0.00 (0.00-0.50) K/uL Baso # (Auto) 0.03 (0.00-0.20) K/uL Immature Gran # (Auto) 0.28 H (0.01-0.20) K/uL Toxic Granulation 1+ Toxic Vacuolation 1+ Polychromasia 1+ Peripher Smr Path Cons D-Dimer 2100 H* (0-500) ug/L FEU Sodium 135 L (136-145) mmol/L Potassium 4.1 (3.5-5.1) mmol/L Chloride 104 (98-107) mmol/L Carbon Dioxide 23 (21-32) mmol/L Anion Gap 8 (3-11) BUN 20 (6-23) mg/dl Creatinine 1.25 (0.6-1.4) mg/dl Est Cr Clr Drug Dosing 76.2 ml/min Est GFR ( Amer) 71.6 ml/min Est GFR (Non-Af Amer) 61.8 ml/min BUN/Creatinine Ratio 16.0 (10-20) Glucose 114 H (70-99(Fasting)) mg/dl Calcium 9.5 (8.6-10.3) mg/dl Total Bilirubin 1.5 H (0.2-1.0) mg/dl AST 16 (13-39) U/L ALT 14 (7-52) U/L Alkaline Phosphatase 56 (34-104) U/L Troponin I High Sens 10.3 (0-20) pg/ml Total Protein 7.7 (6.0-8.3) gm/dl Albumin 3.8 (3.4-5.0) gm/dl Globulin 3.9 (2.5-4.0) gm/dl Albumin/Globulin Ratio 1.0 (0.9-2) IgG 1607.4 (635-1741) mg/dl IgA 122.8 (70-400) mg/dl IgM 206.3 (45-281) mg/dl Adenovirus (PCR) (NotDetected) B. pertussis DNA (PCR) (NotDetected) B.parapertussis DNA PCR (NotDetected) C. pneumoniae DNA (PCR) (NotDetected) Coronavirus OC43 (PCR) (NotDetected) Coronavirus HKU1 (PCR) (NotDetected) Coronavirus 229E (PCR) (NotDetected) SARS-CoV-2 (PCR) (NotDetected) Coronavirus NL63 (PCR) (NotDetected) Human Metapneumovir PCR (NotDetected) Influenza Type A (PCR) (NotDetected) Influenza Type B (PCR) (NotDetected) M. pneumoniae (PCR) (NotDetected) Parainfluenza 1 (PCR) (NotDetected) Parainfluenza 2 (PCR) (NotDetected) Parainfluenza 3 (PCR) (NotDetected) Parainfluenza 4 (PCR) (NotDetected) RSV (PCR) (NotDetected) Entero/Rhino (PCR) (NotDetected) 09/27/23 09/27/23 Range/Units 14:45 16:15 WBC (4.8-10.8) K/ul RBC (4.70-6.10) M/uL Hgb (14.0-18.0) g/dl Hct (42.0-52.0) % MCV (80.0-100.0) fL MCH (25.0-34.0) pg MCHC (32.0-36.0) g/dL RDW Std Deviation (36.4-46.3) fL RDW Coeff of Rajesh (11.5-14.5) % Plt Count (130-400) K/uL MPV (9.4-12.4) fL Immature Gran % (Auto) % Neut % (Auto) % Lymph % (Auto) % Candler % (Auto) % Eos % (Auto) % Baso % (Auto) % Neut # (Auto) (1.40-6.50) K/uL Lymph # (Auto) (1.20-3.40) K/uL Candler # (Auto) (0.11-0.59) K/uL Eos # (Auto) (0.00-0.50) K/uL Baso # (Auto) (0.00-0.20) K/uL Immature Gran # (Auto) (0.01-0.20) K/uL Toxic Granulation Toxic Vacuolation Polychromasia Peripher Smr Path Cons Cancelled D-Dimer (0-500) ug/L FEU Sodium (136-145) mmol/L Potassium (3.5-5.1) mmol/L Chloride (98-107) mmol/L Carbon Dioxide (21-32) mmol/L Anion Gap (3-11) BUN (6-23) mg/dl Creatinine (0.6-1.4) mg/dl Est Cr Clr Drug Dosing ml/min Est GFR ( Amer) ml/min Est GFR (Non-Af Amer) ml/min BUN/Creatinine Ratio (10-20) Glucose (70-99(Fasting)) mg/dl Calcium (8.6-10.3) mg/dl Total Bilirubin (0.2-1.0) mg/dl AST (13-39) U/L ALT (7-52) U/L Alkaline Phosphatase (34-104) U/L Troponin I High Sens (0-20) pg/ml Total Protein (6.0-8.3) gm/dl Albumin (3.4-5.0) gm/dl Globulin (2.5-4.0) gm/dl Albumin/Globulin Ratio (0.9-2) IgG (635-1741) mg/dl IgA (70-400) mg/dl IgM (45-281) mg/dl Adenovirus (PCR) Not Detected (NotDetected) B. pertussis DNA (PCR) Not Detected (NotDetected) B.parapertussis DNA PCR Not Detected (NotDetected) C. pneumoniae DNA (PCR) Not Detected (NotDetected) Coronavirus OC43 (PCR) Not Detected (NotDetected) Coronavirus HKU1 (PCR) Not Detected (NotDetected) Coronavirus 229E (PCR) Not Detected (NotDetected) SARS-CoV-2 (PCR) Not Detected (NotDetected) Coronavirus NL63 (PCR) Not Detected (NotDetected) Human Metapneumovir PCR Not Detected (NotDetected) Influenza Type A (PCR) Not Detected (NotDetected) Influenza Type B (PCR) Not Detected (NotDetected) M. pneumoniae (PCR) Not Detected (NotDetected) Parainfluenza 1 (PCR) Not Detected (NotDetected) Parainfluenza 2 (PCR) Not Detected (NotDetected) Parainfluenza 3 (PCR) Not Detected (NotDetected) Parainfluenza 4 (PCR) Not Detected (NotDetected) RSV (PCR) Not Detected (NotDetected) Entero/Rhino (PCR) DETECTED A* (NotDetected) Administered Medications Albuterol (Albut/Ipratrop 3mg/0.5mg Neb 3 Ml Vial) 3 ml NEB QIDR ROB; Protocol Stop: 10/28/23 06:59 Last Admin: 09/28/23 19:23 Dose: 3 ml Documented By: Admin: 09/28/23 14:10 Dose: 3 ml Documented By: Admin: 09/28/23 10:02 Dose: 3 ml Documented By: Admin: 09/28/23 07:41 Dose: 3 ml Documented By: CYNTHIA Enoxaparin Sodium (Enoxaparin Inj 40 Mg/0.4 Ml Syr) 40 mg SQ Q24H ROB Stop: 10/27/23 21:59 Last Admin: 09/28/23 22:11 Dose: 40 mg Documented By: Admin: 09/27/23 23:36 Dose: 40 mg Documented By: TASIA Cefepime HCl 2,000 mg/ Syringe 20 mls @ 5 mls/min IV Q8H ROB; Protocol Stop: 10/05/23 01:59 Last Admin: 09/28/23 18:17 Dose: 5 mls/min Documented By: Admin: 09/28/23 10:53 Dose: 5 mls/min Documented By: Admin: 09/28/23 02:53 Dose: 5 mls/min Documented By: TASIA Discontinued Medications Ceftriaxone Sodium 2,000 mg/ (Dextrose) 50 mls @ 100 mls/hr IV NOW STA; Protocol Stop: 09/27/23 16:49 Last Infusion: 09/27/23 18:00 Dose: 0 mls/hr Documented By: Admin: 09/27/23 17:12 Dose: 100 mls/hr Documented By: CARROLL Sodium Chloride (Nss) 1,000 mls @ 999 mls/hr IV .Q1H1M ONE Stop: 09/27/23 17:20 Last Infusion: 09/27/23 18:48 Dose: 0 mls/hr Documented By: Admin: 09/27/23 17:11 Dose: 999 mls/hr Documented By: CARROLL Doxycycline Hyclate 100 mg/ (Dextrose) 100 mls @ 50 mls/hr IV NOW STA Stop: 09/27/23 18:57 Last Admin: 09/27/23 18:30 Dose: Not Given Documented By: CARROLL Parenteral Electrolytes (Plasma-Lyte A Ph 7.4) 1,000 mls @ 999 mls/hr IV .Q1H1M ONE Stop: 09/27/23 18:25 Last Infusion: 09/27/23 19:40 Dose: 0 mls/hr Documented By: Admin: 09/27/23 17:52 Dose: 999 mls/hr Documented By: CARROLL Vancomycin HCl 2,500 mg/ (Sodium Chloride) 550 mls @ 200 mls/hr IV NOW ONE Stop: 09/27/23 20:10 Last Admin: 09/27/23 18:40 Dose: 200 mls/hr Documented By: CARROLL Cefepime HCl 2,000 mg/ Syringe 20 mls @ 5 mls/min IV 1800 ONE; Protocol Stop: 09/27/23 18:03 Last Admin: 09/27/23 18:32 Dose: 5 mls/min Documented By: CARROLL Parenteral Electrolytes (Plasma-Lyte A Ph 7.4) 250 mls @ 999 mls/hr IV .Q16M ONE Stop: 09/27/23 17:56 Last Infusion: 09/27/23 19:58 Dose: 0 mls/hr Documented By: Admin: 09/27/23 19:39 Dose: 999 mls/hr Documented By: Vancomycin HCl 1,000 mg/ (Sodium Chloride) 270 mls @ 200 mls/hr IV Q12H ROB Stop: 10/05/23 05:59 Last Infusion: 09/28/23 07:49 Dose: 0 mls/hr Documented By: Admin: 09/28/23 06:01 Dose: 200 mls/hr Documented By: TASAI Ioversol (Optiray 320 500ml) 111 ml IV ONCE ONE Stop: 09/27/23 16:46 Last Admin: 09/27/23 16:45 Dose: 111 ml Documented By: JOHNATHAN Imaging Data Radiologist's Impression: Chest X-Ray 09/27/23 14:39 XR chest 1V not portable CLINICAL HISTORY: Dyspnea TECHNIQUE: Single frontal radiograph of the chest was obtained. Comparison: Comparison is made to chest radiograph 05/21/2023 FINDINGS: No lines and tubes are seen. The cardiomediastinal silhouette is normal. The lungs are clear. No evidence of pleural effusion or pneumothorax. IMPRESSION: No acute chest disease. ACT 112: Negative or not required by law. Electronically signed by: Sekou Allen M.D. 09/27/2023 3:14 PM Discharge Plan Visit Data Chief Complaint: Shortness of Breath/Dyspnea Stated Complaint: SOB, LOW OXYGEN; FEVER; COUGH ED Provider: Baljinder Titus Discharge Problem: Pneumonia Patient Disposition: Admitted As Inpatient Discharge Instructions Interventions: ED Discharge Assessment Last Done: 09/27/23 20:39
[2023-09-27] MEDS ORDERED: OPTIRAY 320 500ml IV ONE (16:45)
--- NOTE | 2023-09-27 17:01 | CT Scan Report ---
CT ANGIOGRAM OF THE CHEST CLINICAL HISTORY: Dyspnea COMPARISON STUDY: Chest x-ray dated 09/27/2023. Chest CT dated 05/21/2023. TECHNIQUE: Following the IV administration of 111 cc of Optiray 320, CT angiogram of the chest was pe rformed from the upper abdomen to the thoracic inlet utilizing the pulmonary embolus protocol. Images are reviewed in the axial, sagittal, and coronal planes. 3-D MIPS images are created and assessed. I V contrast was administered without complication. A dose lowering technique was utilized adhering to the principles of ALARA. The examination is mildly degraded by motion artifact. CT DOSE: 786.59 mGy.cm FINDINGS: Thyroid: Imaged portions of the thyroid gland are normal in size and attenuation. Thoracic aorta: The thoracic aorta is normal in caliber and demonstrates standard 3-vessel arch anato my. No dissection is seen. Pulmonary vasculature: The pulmonary trunk is normal in caliber. There are no filling defects identif ied in main, lobar, or segmental pulmonary branches to suggest pulmonary embolus. Evaluation of the p eripheral branches is degraded by motion artifact. Heart: The heart is normal in size and without pericardial effusion. There is mild coronary artery at herosclerosis. Lungs and pleural spaces: Evaluation of the lung parenchyma is degraded by motion artifact. There is multifocal airspace consolidation seen throughout both lungs, greatest at the lung bases. No pleural effusion is identified. The trachea and central airways are clear. Mediastinum: There are numerous mildly enlarged mediastinal lymph nodes. Prevascular nodes measure up to 1.4 cm in short axis. Trisha: Mildly enlarged hilar lymph nodes measure up to 1.9 cm short axis. Axillae: There is no axillary lymphadenopathy. Upper abdomen: There is a small hiatal hernia. Small hepatic cysts measure up to 2.1 cm. Skeletal structures: No lytic or blastic bony lesions are seen. Arthritic change is seen in shoulders . IMPRESSION: 1. There is no evidence of pulmonary embolus in the main, lobar, or segmental pulmonary arteries. 2. Multifocal airspace consolidation is seen throughout both lungs, greatest at the lung bases. This is typical for pneumonia. Clinical correlation will be required and radiographic follow-up to [facility] ion is recommend. 3. Mildly enlarged mediastinal and hilar lymph nodes are likely reactive. 4. No pleural effusion is identified. 5. Additional findings as above. ACT 112: Negative or not required by law. Electronically signed by: Ez Lowery M.D. 09/27/2023 4:59 PM
[2023-09-27] MEDS ORDERED: PLASMA-LYTE A 1,000 ML IV ONE (17:25)
[2023-09-27] MEDS ORDERED: VANCOMYCIN CONSULT ACTIVE PRN (17:26)
[2023-09-27] MEDS ORDERED: VANCOMYCIN HCL 2,500 MG in SODIUM CHLORIDE 0.9% 500 ML IV ONE (17:26)
--- NOTE | 2023-09-27 17:28 | History & Physical Report ---
Date of Service September 27, 2023 Assessment & Plan (1) Sepsis: Plan: -Admit to med/tele -Currently hemodynamically stable and stable on 4L NC -Presented with 48 hours of generalized weakness, SOB, cough, and fevers. Found to have multifocal pneumonia of CT angiogram of the chest -Significant leukocytosis of 38 with neutrophil predominance of 36, was hypoxia on arrival and tachycardic at 101 -Patient received a dose of Ceftriaxone and 1L NSS in the ED -Lactate ordered in the ED is in process, will FU -Will given an additional 1.25L of Normosol to complete his sepsis bolus -Will also switch the patient to Cefepime and Vancomycin to cover for healthcare associated PNA with his multiple admissions over the past year -Will start an immunocompromised workup as it is odd that the patient is otherwise healthy but has had multiple admissions for bacterial PNA over the past year; the patient gave consent to obtain the following ' >HIV testing >Peripheral smear >IgG, IgM, and IgA immunoglobulins -Blood cultures obtain in the ED, will obtain sputum culture -Will FU on full respiratory biofire pending on admission -Incentive spirometry, flutter therapy, prn O2 -SQ Lovenox for DVT PPX -HH diet -AM CBC, BMP, Mag (2) Pneumonia: Plan: -Noted to have BL multifocal pneumonia on CT angio of the chest -Continue Vanc and cefepime for now -PRN O2 to keep SpO2 at or above 94% -Incentive spirometry and flutter therapy (3) Hypoxia: Plan: -Noted to be hypoxic at 85% on arrival to the ED -Likely due to his multifocal bacterial pneumonia -CTA of the chest was negative for PE or other acute causes -Cardiac workup has been negative -Continue to monitor with treatment of bacterial pneumonia and sepsis (4) Hypertension: Plan: -BP was initially soft on arrival at 115/55 -Has been stable -Will hold losartan-HCTZ for now to avoid hypotension with sepsis Plan The patient was discussed with Dr. Salmeron at the time of the admission History of Present Illness Chief Complaint: SOB Primary Care Provider: Julian Carlos DO Dilan is a 62 year old male with a PMH significant for recurrent bacterial pneumonia with sepsis and HTN who presented to the [facility] ED on 09/27 with complaints of cough, fevers, SOB, and hypoxia for the past week. The patient recently traveled to and from [place] [employer] for work. In the ED he was noted to be hypoxic at 85% on RA and tachycardic at 101 but otherwise stable. Labs were significant for a leukocytosis of 38 with neutrophil predominance of 36, D-dimer of 2100, total bili of 1.5 but otherwise stable LFT's and full respiratory biofire in process. Chest xray was read as no acute process. CT angiogram of the chest was read as "1. There is no evidence of pulmonary embolus in the main, lobar, or segmental pulmonary arteries. 2. Multifocal airspace consolidation is seen throughout both lungs, greatest at the lung bases. This is typical for pneumonia. Clinical correlation will be required and radiographic follow-up to resolution is recommend. 3. Mildly enlarged mediastinal and hilar lymph nodes are likely reactive. 4. No pleural effusion is identified.". Prior to admission the patient was given 1L NSS and a dose of Ceftriaxone. He remained stable on 4L NC prior to admission. At the time of the exam the patient was sitting in bed in no acute distress, currently stable on 4L NC. He states that he had been in his normal state of health until he started to develop generalized weakness, fever, chills, a productive cough, and SOB approximately 48 hours ago. These symptoms felt similar to the 2 previous admissions he has had for bacterial pneumonia other the past year. He states that he traveled home to [place] last week to visit, he denies being around people who were obviously sick but did visit his mother who is in a retirement. He currently feels improved compared to ED arrival but feels generally unwell at this time. I explained that we would like to start a workup for possible immunocompromised state as he is otherwise young and healthy but will be hospitalized for bacterial pneumonia for the third time this year. The patient is in agreement with obtaining the workup. I explained that HIV testing is usually included in the workup, he gave me consent to test for HIV as well. We discussed code status, he is a full code and would want his children to make medical decisions for him if he cannot make them himself. Please refer to Dr. Salmeron's attestation for any changes to the treatment plan Allergies Allergy/AdvReac Type Severity Reaction Status Date / Time lisinopril AdvReac Intermediate Cough Verified 09/27/23 17:37 Home Medications Medication Instructions Recorded Confirmed Type losartan 100 1 tab PO HS 03/09/23 09/27/23 History mg-hydrochlorothiazide 12.5 mg tablet loratadine 10 mg tablet (Claritin) 10 mg PO HS 09/27/23 09/27/23 History Past Med/Surg History Medical History Hypertension Sensorineural hearing loss of both ears Tinnitus, bilateral Surgical History No significant past surgical history Family History Father COPD (chronic obstructive pulmonary disease) Mother Dementia Social History Smoking Status: Never smoker Second Hand Exposure: No; Do You Dip or Chew Tobacco: No; Hx Alcohol Use: Yes Alcohol type: hard liquor Hx Substance Use: No Preferred Language: Vietnamese Communication Ability: Effective Insurance Claims Clerk Required: No Beliefs That Will Affect Care: None Current Living Situation: Alone Feels Safe at Home: Yes Assistive Devices: Glasses Physical Exam Physical Exam: Physical Exam: General: In no acute distress, stated age, ill appearing but non-toxic HEENT: Normocephalic, atraumatic, no scleral icterus, pupils around round, symmetrical, and reactive to light, dry mucus membranes, trachea midline, no thyromegaly Chest/Pulm: No respiratory distress, able to speak in complete sentences, symmetrical chest expansion, rhonchi noted in the BL lower lung rosas, otherwise CTA Cardiac: RRR, no murmurs noted Abdomen: Negative for ascites and bruising, normoactive bowel sounds, soft, non-tender to palpation throughout Musculoskeletal: Symmetrical and without signs of acute trauma, upper and lower extremities with full ROM, no atrophy, spasticity, or flaccidity Extremities: Radial, dorsalis pedis, and posterior tibial pulses are intact and symmetrical, no edema noted in the BL LE's Skin: Warm, dry, no rashes , lesions, or scars noted Neuro: Alert and oriented to person, place, month, year, and president, no focal defects, no tremors noted Psych: No acute distress, calm and cooperative during the exam Results & Data Results & Data Vital Signs (Past 12 Hours) Vital Signs Temp Pulse Pulse Resp BP BP Pulse Ox 09/27/23 16:29 94 09/27/23 16:29 87 18 115/55 L 94 09/27/23 16:29 88 L 09/27/23 14:38 36.7 C 101 H 18 130/72 92 O2 Del Method O2 Flow Rate 09/27/23 16:29 Nasal Cannula 09/27/23 16:29 Nasal Cannula 4 09/27/23 16:29 Nasal Cannula 0 09/27/23 14:38 Room Air Laboratory Results Abnormal lab results 09/27/23 09/27/23 09/27/23 Range/Units 14:45 14:45 14:45 WBC 38.34 H* (4.8-10.8) K/ul RBC 4.55 L (4.70-6.10) M/uL Hct 41.7 L (42.0-52.0) % MPV 9.3 L (9.4-12.4) fL Neut # (Auto) 36.59 H (1.40-6.50) K/uL Lymph # (Auto) 0.95 L (1.20-3.40) K/uL Immature Gran # (Auto) 0.28 H (0.01-0.20) K/uL D-Dimer 2100 H* (0-500) ug/L FEU Sodium 135 L (136-145) mmol/L Glucose 114 H (70-99(Fasting)) mg/dl Total Bilirubin 1.5 H (0.2-1.0) mg/dl Diagnostic Findings Chest X-Ray 09/27/23 14:39 XR chest 1V not portable CLINICAL HISTORY: Dyspnea TECHNIQUE: Single frontal radiograph of the chest was obtained. Comparison: Comparison is made to chest radiograph 05/21/2023 FINDINGS: No lines and tubes are seen. The cardiomediastinal silhouette is normal. The lungs are clear. No evidence of pleural effusion or pneumothorax. IMPRESSION: No acute chest disease. ACT 112: Negative or not required by law. Electronically signed by: Sekou Allen M.D. 09/27/2023 3:14 PM Chest CTA 09/27/23 16:08 CT ANGIOGRAM OF THE CHEST CLINICAL HISTORY: Dyspnea COMPARISON STUDY: Chest x-ray dated 09/27/2023. Chest CT dated 05/21/2023. TECHNIQUE: Following the IV administration of 111 cc of Optiray 320, CT angiogram of the chest was performed from the upper abdomen to the thoracic in let utilizing the pulmonary embolus protocol. Images are reviewed in the axial, sagittal, and coronal planes. 3-D MIPS images are created and assessed. IV contrast was administered without complication. A dose lowering technique was utilized adhering to the principles of ALARA. The examination is mildly degraded by motion artifact. CT DOSE: 786.59 mGy.cm FINDINGS: Thyroid: Imaged portions of the thyroid gland are normal in size and attenuation. Thoracic aorta: The thoracic aorta is normal in caliber and demonstrates standard 3-vessel arch anatomy. No dissection is seen. Pulmonary vasculature: The pulmonary trunk is normal in caliber. There are no filling defects identified in main, lobar, or segmental pulmonary branches to suggest pulmonary embolus. Evaluation of the peripheral branches is degraded by motion artifact. Heart: The heart is normal in size and without pericardial effusion. There is mild coronary artery atherosclerosis. Lungs and pleural spaces: Evaluation of the lung parenchyma is degraded by motion artifact. There is multifocal airspace consolidation seen throughout both lungs, greatest at the lung bases. No pleural effusion is identified. The trachea and central airways are clear. Mediastinum: There are numerous mildly enlarged mediastinal lymph nodes. Prevascular nodes measure up to 1.4 cm in short axis. Trisha: Mildly enlarged hilar lymph nodes measure up to 1.9 cm short axis. Axillae: There is no axillary lymphadenopathy. Upper abdomen: There is a small hiatal hernia. Small hepatic cysts measure up to 2.1 cm. Skeletal structures: No lytic or blastic bony lesions are seen. Arthritic change is seen in shoulders. IMPRESSION: 1. There is no evidence of pulmonary embolus in the main, lobar, or segmental pulmonary arteries. 2. Multifocal airspace consolidation is seen throughout both lungs, greatest at the lung bases. This is typical for pneumonia. Clinical correlation will be required and radiographic follow-up to resolution is recommend. 3. Mildly enlarged mediastinal and hilar lymph nodes are likely reactive. 4. No pleural effusion is identified. 5. Additional findings as above. ACT 112: Negative or not required by law. Electronically signed by: Ez Lowery M.D. 09/27/2023 4:59 PM ECG Additional Comments: Sinus tachycardia Otherwise normal ECG When compared with ECG of 21-MAY-2023 16:19, No significant change was found Code Status & VTE Plan Code Status Full code VTE Prophylaxis Plan VTE Prophylaxis will be ordered: Yes Supervising Physician Co-Signing Physician Notes Patient seen and examined, chart reviewed, case discussed with Nadeem Shields PA-C and I agree with the assessment and plan as above except as otherwise noted Labs and images reviewed Everette is a 62-year-old male with a past medical history of recurrent pneumonia who presents for his third episode of pneumonia within approximately 6 months. He has not had a immune suppression work-up previous, and is not on chronic steroids. On presentation to the ER he is hypotensive, has a leukocytosis of 38, is short of breath, and has received 1 L fluid. CTA shows no evidence of PE but multifocal airspace consolidation in both lungs greatest in the bases typical of multifocal pneumonia. Sputum culture is ordered. At time of hospitalist/PA evaluation patient is ordered an additional 1250 cc of IV crystalloid to meet 30 cc/kg of ideal body weight sepsis goals. Antibiotics have been given, blood cultures ordered. Agree with treatment of multifocal pneumonia as above with additional coverage with expansion to cover for hospital exposure organisms given recent admissions. Leukocytosis is severe at 38, this is neutrophilic predominant with left shift. Concern for immunosuppression will add a peripheral smear, and HIV test. Immunoglobulins were not previously suppressed. Total lymphocyte count was decreased to 05/17/2023 and 09/16/2023. Agree with assessment and management as above. PG Care Time/CCT Total # of Minutes Spent Total Time Spent with Patient: Total time spent is greater than 50% in coordination of care (as documented) at patient's floor/unit and/or counseling patient: Coding [place] [address] INT INP/OBS CARE 2/55MIN Patient Type Established History Comprehensive Exam Comprehensive Medical Decision Making Moderate Complexity Diagnoses Sepsis A41.9 Pneumonia J18.9 Hypoxia R09.02 Hypertension I10
[2023-09-27] MEDS ORDERED: PLASMA-LYTE A 250 ML IV ONE (17:41)
[2023-09-27] MEDS: DOXYCYCLINE HYCLATE 100 MG in DEXTROSE 5% MINI-B 100 ML IV STA ×2 (17:51→18:30)
[2023-09-27 17:58] LABS: Immunoglobulin A 122.8 mg/dl (70-400); Immunoglobulin G 1607.4 mg/dl (635-1741); Immunoglobulin M 206.3 mg/dl (45-281)
[2023-09-27] MEDS ORDERED: CEFEPIME 2,000 MG in SYRINGE 0 ML IV ONE (18:00)
[2023-09-27 18:05] LABS: Adenovirus PCR Not Detected (NotDetected); Bordetella parapertussis PCR Not Detected (NotDetected); Bordetella pertussis PCR Not Detected (NotDetected); Chlamydia pneumoniae PCR Not Detected (NotDetected); Coronavirus 229E PCR Not Detected (NotDetected); Coronavirus CoV-2 (COVID19)PCR Not Detected (NotDetected); Coronavirus HKU1 PCR Not Detected (NotDetected); Coronavirus NL63 PCR Not Detected (NotDetected); Coronavirus OC43PCR Not Detected (NotDetected); Human Metapneumovirus PCR Not Detected (NotDetected); Influenza A PCR Not Detected (NotDetected); Influenza B PCR Not Detected (NotDetected); Mycoplasma pneumoniae PCR Not Detected (NotDetected); Parainfluenza Virus 1 PCR Not Detected (NotDetected); Parainfluenza Virus 2 PCR Not Detected (NotDetected); Parainfluenza Virus 3 PCR Not Detected (NotDetected); Parainfluenza Virus 4 PCR Not Detected (NotDetected); Respiratory Syncytial VirusPCR Not Detected (NotDetected)
[2023-09-27 18:14] LABS: Rhinovirus/Enterovirus PCR DETECTED (NotDetected)
[2023-09-27] MEDS: ENOXAPARIN INJ 40 MG/0.4 ML SYR SQ SCH (23:36)
[2023-09-28] MEDS: CEFEPIME 2,000 MG in SYRINGE 0 ML IV SCH ×3 (02:53→18:17)
[2023-09-28] MEDS ORDERED: ALBUT/IPRATROP 3MG/0.5MG NEB 3 ML VIAL NEB PRN (03:22)
[2023-09-28] MEDS ORDERED: VANCOMYCIN HCL 1,000 MG in SODIUM CHLORIDE 0.9% 250 ML IV SCH (06:00)
[2023-09-28 06:14] LABS: Basophils # (auto) 0.07 K/uL (0.00-0.20); Basophils % (auto) 0.3 %; Eosinophils # (auto) 0.14 K/uL (0.00-0.50); Eosinophils % (auto) 0.7 %; Hematocrit (blood only) 34.6 % (42.0-52.0); Hemoglobin 11.9 g/dl (14.0-18.0); Immature Granulocytes % (auto) 0.5 %; Lymphocytes # (auto) 1.55 K/uL (1.20-3.40); Lymphocytes % (auto) 7.7 %; Mean Corpuscular Hgb Conc 34.4 g/dL (32.0-36.0); Mean Corpuscular Volume 90.1 fL (80.0-100.0); Mean Platelet Volume 9.7 fL (9.4-12.4); Neutrophils # (auto) 17.83 K/uL (1.40-6.50); Neutrophils % (auto) 88.8 %; Platelet Count 250 K/uL (130-400); RDW Standard Deviation 46.1 fL (36.4-46.3); Red Blood Count 3.84 M/uL (4.70-6.10); White Blood Count 20.09 K/ul (4.8-10.8)
[2023-09-28 06:30] LABS: Albumin Globulin Ratio 0.9 (0.9-2); BUN Creatinine Ratio 17.3 (10-20); Bilirubin,Total 1.6 mg/dl (0.2-1.0); Calcium 8.5 mg/dl (8.6-10.3); Creatinine Clr Calc Pharmacy 92.1 ml/min; Est GFR (African American) 89.4 ml/min; Est GFR (Non-African American) 77.1 ml/min; Globulin 3.3 gm/dl (2.5-4.0); Potassium 4.1 mmol/L (3.5-5.1); Total Protein 6.3 gm/dl (6.0-8.3)
--- NOTE | 2023-09-28 07:21 | Hospitalist Progress Note ---
Date of Service September 28, 2023 Assessment & Plan (1) Sepsis: Plan: -Currently hemodynamically stable and stable on 5L NC -Presented with 48 hours of generalized weakness, SOB, cough, and fevers. Found to have multifocal pneumonia of CT angiogram of the chest -Significant leukocytosis of 38 with neutrophil predominance of 36, was hypoxia on arrival and tachycardic at 101 -Patient received a dose of Ceftriaxone, doxycycline, and 1L NSS in the ED -Lactate negative x2 -Pro-Ward 6 -Started on vancomycin and cefepime. DC vancomycin on 09/28 due to MRSA nares negative -Patient may have some underlying immunocompromise -HIV testing pending,- >Peripheral smear consistent with bacteremia/sepsis >IgG, IgM, and IgA negative. -Blood cultures and sputum cultures pending. -Respiratory BioFire positive for entero-/rhinovirus. -Incentive spirometry, flutter therapy, prn O2 -SQ Lovenox for DVT PPX (2) Pneumonia: Plan: -Noted to have BL multifocal pneumonia on CT angio of the chest -Initially started on vanc and cefepime. MRSA swab negative, will DC vancomycin at this time. -PRN O2 to keep SpO2 at or above 94% -Incentive spirometry and flutter therapy (3) Hypoxia: Plan: -Noted to be hypoxic at 85% on arrival to the ED -Likely due to his multifocal bacterial pneumonia -CTA of the chest was negative for PE -Cardiac workup has been negative -Continue to monitor with treatment of bacterial pneumonia and sepsis (4) Hypertension: Plan: -Has been stable -Will hold losartan-HCTZ for now to avoid hypotension with sepsis Admission and Anticipated Discharge Date Admission Date: September 27, 2023 Supervising Physician Co-Signing Physician Notes Attending attestation Pt seen and examined in concert with Dr. Nichols. In agreement with the documented findings as noted in the resident documentation with any exceptions or additions as noted here. Feeling less fatigue and short of breath since presentation and tolerating medical management well. On examination, S1/S2 nl RRR no MCG. scattered b/l LL rales and decreased BS overall @ bases. Abd NT/ND BS+ve Sepsis in the setting of multifocal PNA with acute hypoxic respiratory failure - MRSA nares negative, HIV pending - de-escalate from vancomycin and consider further descalation following HIV testing to routine dual regimen. Follow up cultures. Continue O2 and wean per protocol. May require home O2 following. Else see resident documentation as noted. Subjective Patient was seen bedside this morning. No issues or concerns at this time. She continues to be on oxygen. In terms of patient's history. Has no history of prostate cancer or family history of prostate cancer. in 2008 having the same house since then. 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 He does not smoke, drinks approximately 3 times a week. Review of Systems Review of Systems: All systems reviewed & are unremarkable except as noted in Subjective Physical Exam Physical Exam: Constitutional: well-appearing, no acute distress HEENT: NCAT, no conjunctival injection CV: regular rhythm, no murmur appreciated, extremities well-perfused, no LE edema Resp: CTABL, no wheezes/rales/rhonchi appreciated, no increased work of breathing GI: soft, nondistended, nontender, BS normoactive MSK: no gross deformities appreciated Skin: warm, dry, no rash appreciated Neuro: alert, oriented, no focal neurologic deficit appreciated Results & Data Results & Data Vital Signs (Past 12 Hours) Vital Signs Temp Pulse Pulse Resp BP Pulse Ox O2 Del Method 09/28/23 06:48 Nasal Cannula 09/28/23 04:14 36.9 C 82 20 105/63 89 L Nasal Cannula 09/27/23 21:41 79 09/27/23 22:01 76 09/27/23 21:42 36.9 C 83 20 110/67 91 Nasal Cannula 09/27/23 20:39 Nasal Cannula O2 Flow Rate 09/28/23 06:48 8 09/28/23 04:14 4 09/27/23 21:41 09/27/23 22:01 09/27/23 21:42 4 09/27/23 20:39 4 Resident Activity Tracking Resident Involvement: Resident Care Provided Care Provided: Adult Hospital Medicine
[2023-09-28] MEDS: ALBUT/IPRATROP 3MG/0.5MG NEB 3 ML VIAL NEB SCH ×4 (07:41→19:23)
[2023-09-28] MEDS: ENOXAPARIN INJ 40 MG/0.4 ML SYR SQ SCH (22:11)
[2023-09-29] MEDS: CEFEPIME 2,000 MG in SYRINGE 0 ML IV SCH ×3 (04:57→17:05)
[2023-09-29 05:21] LABS: Basophils # (auto) 0.04 K/uL (0.00-0.20); Basophils % (auto) 0.4 %; Eosinophils # (auto) 0.41 K/uL (0.00-0.50); Eosinophils % (auto) 3.7 %; Hematocrit (blood only) 33.4 % (42.0-52.0); Hemoglobin 11.2 g/dl (14.0-18.0); Immature Granulocytes # (auto) 0.05 K/uL (0.01-0.20); Immature Granulocytes % (auto) 0.5 %; Lymphocytes # (auto) 1.92 K/uL (1.20-3.40); Lymphocytes % (auto) 17.5 %; Mean Corpuscular Hemoglobin 30.8 pg (25.0-34.0); Mean Corpuscular Hgb Conc 33.5 g/dL (32.0-36.0); Mean Corpuscular Volume 91.8 fL (80.0-100.0); Mean Platelet Volume 9.5 fL (9.4-12.4); Monocytes % (auto) 4.6 %; Neutrophils # (auto) 8.04 K/uL (1.40-6.50); Neutrophils % (auto) 73.3 %; Platelet Count 224 K/uL (130-400); RDW Standard Deviation 47.3 fL (36.4-46.3); Red Blood Count 3.64 M/uL (4.70-6.10); White Blood Count 10.96 K/ul (4.8-10.8)
[2023-09-29 05:43] LABS: Albumin Globulin Ratio 0.9 (0.9-2); BUN Creatinine Ratio 16.1 (10-20); Bilirubin,Total 0.9 mg/dl (0.2-1.0); Calcium 8.8 mg/dl (8.6-10.3); Creatinine Clr Calc Pharmacy 102.3 ml/min; Est GFR (African American) 102.3 ml/min; Est GFR (Non-African American) 88.3 ml/min; Globulin 3.3 gm/dl (2.5-4.0); Total Protein 6.3 gm/dl (6.0-8.3)
[2023-09-29] MEDS ORDERED: ACETAMINOPHEN 325 MG TAB PO PRN (06:35)
--- NOTE | 2023-09-29 07:11 | Discharge Summary ---
Date of Service September 29, 2023 Admission HPI Per Admitting Provider Dilan is a 62 year old male with a PMH significant for recurrent bacterial pneumonia with sepsis and HTN who presented to the [facility] ED on 09/27 with complaints of cough, fevers, SOB, and hypoxia for the past week. The patient recently traveled to and from [place] for work. In the ED he was noted to be hypoxic at 85% on RA and tachycardic at 101 but otherwise stable. Labs were significant for a leukocytosis of 38 with neutrophil predominance of 36, D-dimer of 2100, total bili of 1.5 but otherwise stable LFT's and full respiratory biofire in process. Chest xray was read as no acute process. CT angiogram of the chest was read as "1. There is no evidence of pulmonary embolus in the main, lobar, or segmental pulmonary arteries. 2. Multifocal airspace consolidation is seen throughout both lungs, greatest at the lung bases. This is typical for pneumonia. Clinical correlation will be required and radiographic follow-up to resolution is recommend. 3. Mildly enlarged mediastinal and hilar lymph nodes are likely reactive. 4. No pleural effusion is identified.". Prior to admission the patient was given 1L NSS and a dose of Ceftriaxone. He remained stable on 4L NC prior to admission. At the time of the exam the patient was sitting in bed in no acute distress, currently stable on 4L NC. He states that he had been in his normal state of health until he started to develop generalized weakness, fever, chills, a productive cough, and SOB approximately 48 hours ago. These symptoms felt similar to the 2 previous admissions he has had for bacterial pneumonia other the past year. He states that he traveled home to [place] last week to visit, he denies being around people who were obviously sick but did visit his mother who is in a detention. He currently feels improved compared to ED arrival but feels generally unwell at this time. I explained that we would like to start a workup for possible immunocompromised state as he is otherwise young and healthy but will be hospitalized for bacterial pneumonia for the third time this year. The patient is in agreement with obtaining the workup. I explained that HIV testing is usually included in the workup, he gave me consent to test for HIV as well. We discussed code status, he is a full code and would want his children to make medical decisions for him if he cannot make them himself. Admission Exam Per Admitting Provider Physical Exam: General: In no acute distress, stated age, ill appearing but non-toxic HEENT: Normocephalic, atraumatic, no scleral icterus, pupils around round, symmetrical, and reactive to light, dry mucus membranes, trachea midline, no thyromegaly Chest/Pulm: No respiratory distress, able to speak in complete sentences, symmetrical chest expansion, rhonchi noted in the BL lower lung rosas, otherwise CTA Cardiac: RRR, no murmurs noted Abdomen: Negative for ascites and bruising, normoactive bowel sounds, soft, non- tender to palpation throughout Musculoskeletal: Symmetrical and without signs of acute trauma, upper and lower extremities with full ROM, no atrophy, spasticity, or flaccidity Extremities: Radial, dorsalis pedis, and posterior tibial pulses are intact and symmetrical, no edema noted in the BL LE's Skin: Warm, dry, no rashes , lesions, or scars noted Neuro: Alert and oriented to person, place, month, year, and president, no focal defects, no tremors noted Psych: No acute distress, calm and cooperative during the exam Principal Diagnosis Sepsis secondary to pneumonia Discharge Exam Constitutional: well-appearing, no acute distress HEENT: NCAT, no conjunctival injection CV: regular rhythm, no murmur appreciated, extremities well-perfused, no LE edema Resp: CTABL, no wheezes/rales/rhonchi appreciated, no increased work of breathing GI: soft, nondistended, nontender, BS normoactive MSK: no gross deformities appreciated Skin: warm, dry, no rash appreciated Neuro: alert, oriented, no focal neurologic deficit appreciated Discharge Data Allergies Allergy/AdvReac Type Severity Reaction Status Date / Time lisinopril AdvReac Intermediate Cough Verified 09/27/23 17:37 Consultations 09/27/23 17:47 ED Decision to Admit Stat Ordered Studies 09/27/23 16:08 CT for pulmonary embolism PE [CT angio chest PE protocol] Stat Chest X-Ray 09/27/23 14:39 XR chest 1V not portable CLINICAL HISTORY: Dyspnea TECHNIQUE: Single frontal radiograph of the chest was obtained. Comparison: Comparison is made to chest radiograph 05/21/2023 FINDINGS: No lines and tubes are seen. The cardiomediastinal silhouette is normal. The lungs are clear. No evidence of pleural effusion or pneumothorax. IMPRESSION: No acute chest disease. ACT 112: Negative or not required by law. Electronically signed by: Sekou Allen M.D. 09/27/2023 3:14 PM Chest CTA 09/27/23 16:08 CT ANGIOGRAM OF THE CHEST CLINICAL HISTORY: Dyspnea COMPARISON STUDY: Chest x-ray dated 09/27/2023. Chest CT dated 05/21/2023. TECHNIQUE: Following the IV administration of 111 cc of Optiray 320, CT angiogram of the chest was performed from the upper abdomen to the thoracic inlet utilizing the pulmonary embolus protocol. Images are reviewed in the axial, sagittal, and coronal planes. 3-D MIPS images are created and assessed. IV contrast was administered without complication. A dose lowering technique was utilized adhering to the principles of ALARA. The examination is mildly degraded by motion artifact. CT DOSE: 786.59 mGy.cm FINDINGS: Thyroid: Imaged portions of the thyroid gland are normal in size and attenuation. Thoracic aorta: The thoracic aorta is normal in caliber and demonstrates standard 3-vessel arch anatomy. No dissection is seen. Pulmonary vasculature: The pulmonary trunk is normal in caliber. There are no f illing defects identified in main, lobar, or segmental pulmonary branches to suggest pulmonary embolus. Evaluation of the peripheral branches is degraded by motion artifact. Heart: The heart is normal in size and without pericardial effusion. There is mild coronary artery atherosclerosis. Lungs and pleural spaces: Evaluation of the lung parenchyma is degraded by motion artifact. There is multifocal airspace consolidation seen throughout both lungs, greatest at the lung bases. No pleural effusion is identified. The trachea and central airways are clear. Mediastinum: There are numerous mildly enlarged mediastinal lymph nodes. Prevascular nodes measure up to 1.4 cm in short axis. Trisha: Mildly enlarged hilar lymph nodes measure up to 1.9 cm short axis. Axillae: There is no axillary lymphadenopathy. Upper abdomen: There is a small hiatal hernia. Small hepatic cysts measure up to 2.1 cm. Skeletal structures: No lytic or blastic bony lesions are seen. Arthritic change is seen in shoulders. IMPRESSION: 1. There is no evidence of pulmonary embolus in the main, lobar, or segmental pulmonary arteries. 2. Multifocal airspace consolidation is seen throughout both lungs, greatest at the lung bases. This is typical for pneumonia. Clinical correlation will be required and radiographic follow-up to resolution is recommend. 3. Mildly enlarged mediastinal and hilar lymph nodes are likely reactive. 4. No pleural effusion is identified. 5. Additional findings as above. ACT 112: Negative or not required by law. Electronically signed by: Ez Lowery M.D. 09/27/2023 4:59 PM Hospital Course (1) Sepsis: -Presented with 48 hours of generalized weakness, SOB, cough, and fevers. Found to have multifocal pneumonia of CT angiogram of the chest -Significant leukocytosis of 38 with neutrophil predominance of 36, was hypoxia on arrival and tachycardic at 101 -Patient received a dose of Ceftriaxone, doxycycline, and 1L NSS in the ED -Lactate negative x2 -Started on vancomycin and cefepime. DC vancomycin on 09/28 due to MRSA nares negative -Patient may have some underlying immunocompromise -HIV testing negative. -Peripheral smear consistent with bacteremia/sepsis -IgG, IgM, and IgA negative. -Will defer further work-up of IC to PCP. -Blood cultures and sputum cultures negative. -Respiratory BioFire positive for entero-/rhinovirus. -Incentive spirometry, flutter therapy, -Patient did require oxygen during admission, to stop prior to discharge states that patient does not need oxygen at home. -Follow-up with PCP in 1 to 2 weeks. (2) Pneumonia: -Noted to have BL multifocal pneumonia on CT angio of the chest -Initially started on vanc and cefepime. MRSA swab negative, -Incentive spirometry and flutter therapy -2 days of cefepime during admission. -Sent home on cefdinir 300 mg twice daily for the next 5 days for a total of 7 days of antibiotic therapy. -We will also send home on azithromycin 500 mg once a day for 3 days. (3) Hypoxia: -Noted to be hypoxic at 85% on arrival to the ED -Likely due to his multifocal bacterial pneumonia -CTA of the chest was negative for PE -Cardiac workup has been negative -Resolved by time of discharge (4) Hypertension: -Stable. Total Time Total Time Spent Total Time Spent (In Minutes): Please refer to attendings attestation Discharge Plan Discharge Items Patient Disposition: Home - Self-Care Reason For Visit: HYPOXIC RESP FAILURE, BACTERIAL PNEUMONIA, SEPSIS Discharge Diagnosis: Pneumonia Activity: Resume your previous activity Non-emergency contact: Primary Care Provider Call non-emergency contact if: you have any medication questions, your pain is unusual for you and your temperature is above 101.5 Follow-up/Referrals: Julian Carlos, [Primary Care Provider] - (1-2 weeks ) Diet: Regular Addtl Attending Provider Instructions: You were admitted to the hospital for pneumonia. You were treated with antibiotics and oxygen support. A discharge summary will be sent to your primary care physician to ensure continuity of care. Please bring this discharge summary with you to your next office appointment so that your provider can review it at that time. Follow-up appointments: * Make a follow-up appointment with your PCP within the next week. It is very important that you follow up with them shortly after discharge from the hospital. * Keep all your follow-up appointments as already scheduled. If you cannot make an appointment, notify your provider. Medications: Your medication list has been reviewed and reconciled upon discharge to ensure accuracy and continuity of care. An updated list of all your medications is included with your hospital discharge paperwork. Please review this list closely, and make note of any changes. * We sent a new medication called azithromycin to pharmacy. Take azithromycin 500 mg once a day for the next 3 days. * We sent a new medication called cefdinir to your pharmacy. Take cefdinir 300 mg twice a day for 5 days. * If you have any issues filling these prescriptions, please call [phone] and ask to leave a message for Dr. Nichols. * Take your medications as instructed; do not skip a dose of your medicines. Make sure all of your doctors know every medicine you are taking (including [id number] medicines, vitamins, and supplements). Call your primary care provider before taking any new medicines (including over- the-counter medicines, vitamins, and supplements), because some of these may interact with your current medications, or may make your symptoms worse. Tell your primary care provider if you cannot afford your medications. CONTACT YOUR PRIMARY CARE PROVIDER if you experience any of the following: * Worsening of symptoms * Fever, chills, or fatigue * Difficulty following your treatment plan, or difficulty taking medications CALL 911 OR GO TO THE EMERGENCY DEPARTMENT if you experience any of the following: * Sudden, severe abdominal pain or nausea/vomiting * Severe chest pain, or chest pain that radiates (moves) to your jaw or arm * Sudden, severe shortness of breath or difficulty breathing Thank you for allowing us to participate in your care. Pending Studies at Discharge: No Stand-Alone Forms: [facility] [employer], Smoking Cessation Medications and DC Order Prescriptions: New cefdinir 300 mg capsule 300 mg PO BID 5 Days Qty: 10 0RF azithromycin 500 mg tablet 500 mg PO DAILY 3 Days Qty: 3 0RF Continued loratadine [Claritin] 10 mg Tablet 10 mg PO HS losartan-hydrochlorothiazide 100-12.5 mg tablet 1 tab PO HS Discharge Orders: Discharge Order (Routine); Ordered 09/29/23 Ordered By: Ez Nichols Admission Data Admit Date/Time: 09/27/23 17:40 Attending Provider: Allen Estrada Admit Provider: Vitor Salmeron Primary Care Provider: Julian Carlos Other Providers: Vitor Salmeron Other Interventions: Discharge Summary Assessment (RN) Last Done: 09/29/23 16:58 Supervising Physician Co-Signing Physician Notes Attending attestation Pt seen and examined in concert with Dr. Nichols. In agreement with the documented findings as noted in the resident documentation with any exceptions or additions as noted here. Ongoing improvement in activity tolerance and shortness of breath on NC/RA On examination, S1/S2 nl RRR no MCG. decreased rales and improved BS throughout. Abd NT/ND BS+ve Sepsis in the setting of multifocal PNA with acute hypoxic respiratory failure - MRSA nares negative, HIV negative - BCx NGTD - taper to PO regimen to complete course. O2 as indicated. Else see resident documentation as noted. Total attending physician time spent with this patient's care on the day of discharge: 35 minutes. Resident Activity Tracking Resident Involvement: Resident Care Provided Care Provided: Adult Hospital Medicine
[2023-09-29] MEDS: ALBUT/IPRATROP 3MG/0.5MG NEB 3 ML VIAL NEB SCH ×3 (07:14→15:06)
== END 2023-09-29 17:27 | disposition home or self-care (01) | DRG 871 ==
LOC: ED 14:20 → SUATTDRO 17:40 → 2W 17:40